=== PATIENT | male | born 1940 | race Caucasian/White ===

== ENCOUNTER → 2018-04-28 | Outpatient (CLI) | payer MEDICARE, MEDICAID ==
[~2018-04-28] MED LIST: ALBUTEROL2.5 MG/31 INH; ALPHAGAN P5 ML OPHTHALMIC; BREO ELLIPTA 11 EACH INH; DUREZOL5 ML OPHTHALMIC; FINASTERIDE5 MG PO; IPRATROPIU0.2 MG/1 M INH; LASIX 40 MG TAB40 M2 PO; LEXAPRO 10 MG T10 M2 PO; LUMIGAN2.5 M1 OPHTHALMIC; MIRALAX17 GM PO; NEURONTIN 300300 M1 PO; NORCO 5-325 TA1 EACH PO; OXYBUTYNIN 5 MG5 M2 PO; OXYCODONE HCL20 M1 PO; PROTONIX40 M1 PO; REFRESH CLASSI1 EACH OPHTHALMIC; REGLAN 5 MG TAB5 MG PO; ROBITUSSIN-COU237 ML PO; SENNA8.6 MG PO; TOPROL XL25 MG PO; TYLENOL325 MG PO; VENTOLIN HFA 1818 GM INH; VITAMIN D35000 UNI1 PO; XARELTO20 MG PO
== END ==
LOC: M.WC 10:00
DX: T81.31XA Disruption of external operation (surgical) wound, not elsewhere classified, initial encounter (principal); J44.9 Chronic obstructive pulmonary disease, unspecified; Z87.891 Personal history of nicotine dependence; Z93.2 Ileostomy status; Y92.89 Other specified places as the place of occurrence of the external cause; Y83.8 Other surgical procedures as the cause of abnormal reaction of the patient, or of later complication, without mention of misadventure at the time of the procedure

== ENCOUNTER → 2018-05-12 | Outpatient (CLI) | payer MEDICARE, MEDICAID | LOC: M.WC 01:24 | DX: T81.31XD Disruption of external operation (surgical) wound, not elsewhere classified, subsequent encounter (principal); J44.9 Chronic obstructive pulmonary disease, unspecified; Z87.891 Personal history of nicotine dependence; Y83.8 Other surgical procedures as the cause of abnormal reaction of the patient, or of later complication, without mention of misadventure at the time of the procedure ==

== ENCOUNTER → 2018-05-26 | Outpatient (CLI) | payer MEDICARE | LOC: M.WC 01:22 | DX: T81.31XD Disruption of external operation (surgical) wound, not elsewhere classified, subsequent encounter (principal); M86.8X8 Other osteomyelitis, other site; J44.9 Chronic obstructive pulmonary disease, unspecified; Z87.891 Personal history of nicotine dependence; Y83.8 Other surgical procedures as the cause of abnormal reaction of the patient, or of later complication, without mention of misadventure at the time of the procedure ==

== ENCOUNTER → 2018-05-30 | Outpatient (CLI) | payer MEDICARE | LOC: M.MRI 13:07 | DX: M86.9 Osteomyelitis, unspecified (principal); M47.899 Other spondylosis, site unspecified ==

== ENCOUNTER → 2018-06-09 | Outpatient (CLI) | payer MEDICARE | LOC: M.WC 01:48 | DX: T81.31XD Disruption of external operation (surgical) wound, not elsewhere classified, subsequent encounter (principal); J44.9 Chronic obstructive pulmonary disease, unspecified; Z87.891 Personal history of nicotine dependence; Y83.8 Other surgical procedures as the cause of abnormal reaction of the patient, or of later complication, without mention of misadventure at the time of the procedure ==

== ENCOUNTER → 2018-06-23 | Day surgery (SDC) | payer MEDICARE, MEDICAID ==
[2018-06-23 10:22] LABS: HEMATOCRIT 31.4 % (42.0-52.0); HEMOGLOBIN 10.1 gm/dL (14.0-18.0); MCH 26.1 pg (26.0-34.0); MCHC 32.1 g/dL (28.0-37.0); MCV 81.1 fL (80.0-100.0); RBC 3.87 mil/uL (4.50-6.00); RDW-CV 17.5 % (10.5-14.5); WBC 10.4 thou/uL (4.0-11.0)
[2018-06-23 10:44] LABS: CALCIUM 9.2 mg/dL (8.5-10.1); CREATININE 0.9 mg/dL (0.6-1.3)
--- NOTE | 2018-06-23 11:49 | EKG ---
[place] [address] ELECTROCARDIOGRAM REPORT Name: SANDOR MANSFIELD Room: [facility]#: [id number] Admission: 06/23/18 Attend Phys: Vianey Brantley MD Discharge: Date of : 36 Report #: [id number] THIS REPORT FOR: //name// [facility] Test Date: 2018-06-23 Test Time: 10:21:37 Pat Name: SANDOR MANSFIELD Department: Room: Gender: M Wire Web Worker: : 1940 Requested By: Vianey Brantley Order Number: [id number] Reading MD: Imtiaz Barrett Measurements Intervals [place] Rate: 60 P: IN: QRS: 40 QRSD: 85 T: 53 QT: 437 QTc: 437 Interpretive Statements Junctional rhythm No previous ECG available for comparison Electronically Signed On 06-23-2018 11:49:13 GENERAL WAREHOUSE WORKER by Imtiaz Barrett [email or web address] <ELECTRONICALLY SIGNED> By: Imtiaz Barrett MD, [facility] 06/23/18 1149 1021 1021 Imtiaz Barrett MD, FACC /EPI
--- NOTE | 2018-06-30 09:56 | H ---
[place] [address] HISTORY AND PHYSICAL Name: SHYLASANDOR Renard Room: [facility]#: [id number] Admission: 06/23/18 Attend Phys: Vianey Brantley MD Discharge: Date of : 38 Report #: [id number] THIS REPORT FOR: //name// CC: Vianey Quiñones ADMITTING DIAGNOSIS: Chronic nonhealing perineal surgical wound. HISTORY OF PRESENT ILLNESS: The patient is a 76-year-old male with a history of COPD, kidney stones, who underwent a recent abdominoperineal resection and his wound dehisced at his perineal site. He was sent to wound care back in early April for evaluation and treatment and then underwent a series of wound dressing changes and it became apparent that he needed more extensive debridement of his perineal wound and is being set up for surgery. His other surgical and medical history includes a suprapubic catheter surgery as well. He also has a permanent colostomy. HOME MEDICATIONS: Oxycodone, Tylenol, Proventil, albuterol, metoprolol, Xarelto, MiraLax, Lasix, Alphagan and Lumigan eyedrops, oxybutynin, vitamin D. ALLERGIES: He reports no known medication allergies, but has ENVIRONMENTAL ALLERGIES TO ADHESIVE TAPES, BAND-AIDS and LATEX. He also has ASPIRIN, CODEINE and PENICILLIN allergies. PHYSICAL EXAMINATION: GENERAL: He is a modestly obese elderly gentleman lying in bed, in no acute distress. HEAD, EYES, EARS, NOSE AND THROAT: Unremarkable. NECK: Supple, with no adenopathy or jugular venous distention. LUNGS: Distant but clear. CARDIAC: Irregularly irregular rhythm. ABDOMEN: Healed midline scar with an ileostomy stoma and suprapubic catheter in place and well healed and draining without incident. WOUND: In his coccyx area, he has a wound that is opened at 3 locations, but the length of the wounds are as follows, 4 cm in length, 5 cm in width and then 8 cm in depth. IMPRESSION: Nonhealing perineal surgical wound. PLAN: For wide local opening of the deep wound and creating a space for debridement and for placement of a wound VAC to help control and close the wound from the deeper aspects to the superficial aspects. The risks and benefits of the operation were outlined to the patient. His questions [place] [address] HISTORY AND PHYSICAL Name: SANDOR MANSFIELD Renard Room: [facility]#: [id number] Admission: 06/23/18 Attend Phys: Vianey Brantley MD Discharge: Date of : 38 Report #: [id number] understands and wishes to proceed. He is to be stopping his Xarelto 2 days prior to surgery. <ELECTRONICALLY SIGNED> By: Vianey Brantley MD 06/30/18 0956 1153 1218Vianey Brantley MD /edouard
--- NOTE | 2018-06-30 09:57 | OP ---
[address] [address] OPERATIVE REPORT Name: SANDOR MANSFIELD Room: [facility]#: [id number] Admission: 06/23/18 Attend Phys: Vianey Brantley MD Discharge: Date of : 38 Report #: [id number] THIS REPORT FOR: //name// CC: Vianey Quiñones DATE OF SERVICE: 06/23/2018 PREOPERATIVE DIAGNOSIS: Chronic nonhealing perineal wound. POSTOPERATIVE DIAGNOSIS: Toxic osteomyelitis. OPERATIVE PROCEDURE: Exploration and debridement of perineal wound, dimension is 5 cm in length, 2 cm in width and 7 cm in depth. ANESTHESIA: General endotracheal with 0.5% Marcaine and 1% lidocaine with epinephrine infiltrated into the wound site. OPERATIVE PROCEDURE: The patient was intubated and placed in a prone position with gluteal folds taped apart and the perianal skin and perineum was prepped and draped in a sterile fashion. Timeout taken. Antibiotics administered. I began by infiltrating around the three opening perineal wound and pulled out its gauze and then with a #10 scalpel blade connected the three openings creating a wound that was approximately 5 cm in length. It had some purulence that dissected all the way down into the deep perineal spaces and I could feel the coccyx bone, so I was the assumption that there was a deep seated infection involving the bone. There was no erosion of the bone that I could appreciate. The wound was debrided out sharply with the scalpel blade. No bone was taken for culture. The area was irrigated copiously with saline and then a small GranuFoam black was placed into the wound space and secured with the appropriate dressings and placed under 125 mmHg pressure sealing the wound ending the operative procedure. Estimated blood loss 10 mL. Sponge and instrument counts correct. Cultures were sent. The patient was returned to recovery in satisfactory condition. <ELECTRONICALLY SIGNED> By: Vianey Brantley MD 06/30/18 0957 1326 1340Vianey Brantley MD /nt
== END | disposition home or self-care (01) ==
LOC: M.SUR 06:57
PROVIDERS: Surgery
DX: T81.89XA Other complications of procedures, not elsewhere classified, initial encounter (principal); M86.8X8 Other osteomyelitis, other site; I10 Essential (primary) hypertension; I48.91 Unspecified atrial fibrillation; J44.9 Chronic obstructive pulmonary disease, unspecified; D64.9 Anemia, unspecified; M10.9 Gout, unspecified; G62.9 Polyneuropathy, unspecified; F32.9 Major depressive disorder, single episode, unspecified; K21.9 Gastro-esophageal reflux disease without esophagitis; Z87.442 Personal history of urinary calculi; Z79.891 Long term (current) use of opiate analgesic; Z79.899 Other long term (current) drug therapy; Z98.0 Intestinal bypass and anastomosis status; Z98.890 Other specified postprocedural states; Z79.01 Long term (current) use of anticoagulants; Z88.0 Allergy status to penicillin; Z91.040 Latex allergy status; Z88.6 Allergy status to analgesic agent; Y83.8 Other surgical procedures as the cause of abnormal reaction of the patient, or of later complication, without mention of misadventure at the time of the procedure

== ENCOUNTER → 2018-06-30 | Outpatient (CLI) | payer MEDICARE, MEDICAID | LOC: M.WC 01:22 | DX: T81.31XD Disruption of external operation (surgical) wound, not elsewhere classified, subsequent encounter (principal); J44.9 Chronic obstructive pulmonary disease, unspecified; Z87.891 Personal history of nicotine dependence; Y83.8 Other surgical procedures as the cause of abnormal reaction of the patient, or of later complication, without mention of misadventure at the time of the procedure ==

== ENCOUNTER → 2018-07-07 | Outpatient (CLI) | payer MEDICARE, MEDICAID | LOC: M.WC 09:30 | DX: T81.31XD Disruption of external operation (surgical) wound, not elsewhere classified, subsequent encounter (principal); J44.9 Chronic obstructive pulmonary disease, unspecified; Z87.891 Personal history of nicotine dependence; Y83.8 Other surgical procedures as the cause of abnormal reaction of the patient, or of later complication, without mention of misadventure at the time of the procedure ==

== ENCOUNTER → 2018-07-14 | Outpatient (CLI) | payer MEDICARE, MEDICAID | LOC: M.WC 10:00 | DX: T81.31XD Disruption of external operation (surgical) wound, not elsewhere classified, subsequent encounter (principal); J44.9 Chronic obstructive pulmonary disease, unspecified; Z87.891 Personal history of nicotine dependence; Y83.8 Other surgical procedures as the cause of abnormal reaction of the patient, or of later complication, without mention of misadventure at the time of the procedure ==

== ENCOUNTER 2018-07-20 22:28 | Inpatient (IN) | payer MEDICARE, MEDICAID ==
[~2018-07-20] VITALS: Ht 185.4 cm; Wt 109.8 kg
--- NOTE | ~2018-07-20 | CON ---
[address] [address] CONSULTATION Name: SANDOR MANSFIELD Room: [address] IN M.R.#: [id number] Admission: 07/21/18 Attend Phys: Jovan Mazariegos MD Discharge: 07/25/18 Date of : 38 Report #: [id number] THIS REPORT FOR: //name// CC: Jovan Mazariegos [facility] DATE OF SERVICE: 07/21/2018 REFERRING PHYSICIAN: Jovan Mazariegos MD REASON FOR CONSULTATION: Abdominal pain. IMPRESSION: 1. Generalized abdominal pain associated with nausea and vomiting -- evaluate for peptic ulcer disease versus gallbladder disease versus other cause. 2. Dilated loops of small bowel on CT scan -- evaluate for partial small-bowel obstruction. 3. Status post subtotal colectomy with permanent ileostomy in 03/2018 at [facility] by Dr. Miah Sotomayor for colonic inertia. 4. Nonhealing perineal wound. Wound under the care of Dr. Vianey Brantley. 5. Morbid obesity. RECOMMENDATIONS: 1. We will proceed with an abdominal ultrasound and abdominal films tomorrow morning. 2. We will proceed with upper endoscopy, but possibly will be placed on an NG tube if there is evidence to suggest bowel obstruction. 3. Depending on tomorrow tests and his ability, he may need to have a PICC line placed for TPN. I discussed the plan with the patient as well and he is agreeable to the same. HISTORY OF PRESENT ILLNESS: The patient is an unfortunate 77-year-old white male with a history of colonic inertia who underwent surgical intervention for the same back in March of this year at [facility] and has a permanent ileostomy. He was admitted to the hospital with complaints of abdominal pain, nausea and vomiting. He has not been able to state if he has problem with his ulcer. He has had some ostomy output indicating that he does not have a full blown obstruction. He underwent laboratory testing and CT scans, which revealed some dilated loops of small bowel. He is admitted to the hospital for further evaluation and treatment. ALLERGIES: MULTIPLE INCLUDES ADHESIVE TAPE, ASPIRIN, BAND-AIDS, CODEINE, LATEX, [place] [address] CONSULTATION Name: SHYLASANDOR Renard Room: [address]#: [id number] Admission: 07/21/18 Attend Phys: Jovan Mazariegos MD Discharge: 07/25/18 Date of : 38 Report #: [id number] MEDICATIONS: Include Tylenol, gabapentin, some eyedrops, albuterol, Atrovent, Breo-Ellipta, metoprolol, Xarelto, MiraLax, senna, pantoprazole, Lexapro, oxybutynin, vitamin D3, finasteride and Reglan. PAST MEDICAL AND SURGICAL HISTORY: Remarkable for COPD, chronic atrial fibrillation and history of kidney cancer. He has a problem with urinary retention and had suprapubic catheter in place. He has had previous subtotal colectomy with a permanent ileostomy. He has chronic pain syndrome as well. SOCIAL HISTORY: He does not smoke and he does not drink alcohol. FAMILY HISTORY: Negative PHYSICAL EXAMINATION: GENERAL: Revealed an [id number] 77-year-old white male who is awake and alert. CARDIOPULMONARY: Revealed an irregular rate and rhythm. LUNGS: Clear. ABDOMEN: Soft. It was mildly distended and tender diffusely. No rebound or guarding noted. LABORATORY TESTS: Revealed a white count of 15.7, hemoglobin 11.5, platelet count 314,000, MCV 81.6 and RDW is 18.3. Sodium 139, potassium 4.0, chloride 101, bicarbonate is 30, BUN 13, creatinine 0.8, total bilirubin 0.8, alkaline phosphatase 58, AST is 13 and ALT 20. His albumin is 3.0. DISCUSSION: At the present time, it is unclear what is going on with the patient. He will receive an abdominal series and ultrasound tomorrow and upper endoscopy and make further recommendations thereafter. By: [id number] Manuel Collazo DO /nt
--- NOTE | ~2018-07-20 | PROC ---
[address] [address] PROCEDURE REPORT Name: SANDOR MANSFIELD Room: [address] IN .R.#: [id number] Admission: 07/21/18 Attend Phys: Jovan Mazariegos MD Discharge: Date of : 38 Report #: [id number] THIS REPORT FOR: //name// For GI report, please see the Provation report in Perceptive 7. By: [id number] Records Staff THERESE /JORDI
[2018-07-20 22:29] VITALS: BP 130/92
[2018-07-20] MEDS ORDERED: NORCO 7.5-3251 EACH ×2 (22:46)
[2018-07-20 22:56] LABS: ABSOLUTE BASOPHILS 0.1 thou/uL (0.0-0.2); ABSOLUTE EOSINOPHILS 0.1 thou/uL (0.0-0.7); ABSOLUTE LYMPHOCYTES 1.6 thou/uL (0.8-5.3); ABSOLUTE MONOCYTES 0.8 thou/uL (0.0-1.2); ABSOLUTE NEUTROPHILS 13.1 thou/uL (1.6-8.1); BASOPHILS 0.7 %; EOSINOPHILS 0.7 %; HEMATOCRIT 36.2 % (42.0-52.0); HEMOGLOBIN 11.5 gm/dL (14.0-18.0); LYMPHOCYTES 10.4 %; MCH 25.9 pg (26.0-34.0); MCHC 31.8 g/dL (28.0-37.0); MCV 81.6 fL (80.0-100.0); MONOCYTES 5.1 %; MPV 7.8 fl. (7.2-11.1); NUCLEATED RBCS 0 /100WBC; PLATELET COUNT* 314 thou/uL (150-400); POLYS 83.1 %; RBC 4.44 mil/uL (4.50-6.00); RDW-CV 18.3 % (10.5-14.5); WBC 15.7 thou/uL (4.0-11.0)
[2018-07-20 23:02] LABS: ANION GAP 8 mmol/L (7-16); BUN 13 mg/dL (7-18); CALCIUM 9.4 mg/dL (8.5-10.1); CHLORIDE 101 mmol/L (98-107); CO2 30 mmol/L (21-32); CREATININE 0.8 mg/dL (0.6-1.3); GLUCOSE 131 mg/dL (70-99); SODIUM 139 mmol/L (136-145)
[2018-07-20 23:09] LABS: ALKALINE PHOSPHATASE 58 U/L (46-116); LIPASE 80 U/L (73-393); SGOT 13 U/L (15-37); SGPT 20 U/L (30-65); TOTAL BILIRUBIN 0.8 mg/dL (<0.1-1.0); TOTAL PROTEIN 7.7 g/dL (6.4-8.2); TROPONIN-I LEVEL <0.06 ng/mL (<0.06)
[2018-07-21 00:31] LABS: URINE BILIRUBIN NEGATIVE (Negative); URINE BLOOD 2+ (Negative); URINE CLARITY CLEAR; URINE COLOR YELLOW; URINE GLUCOSE-RANDOM NEGATIVE (Negative); URINE KETONES NEGATIVE (Negative); URINE LEUKOCYTES-REFLEX 1+ (Negative); URINE NITRITE-REFLEX POSITIVE (Negative); URINE PROTEIN TRACE (Negative); URINE UROBILINOGEN 0.2 E.U./dl (0.2-1.0)
[2018-07-21 00:32] LABS: BACTERIA-REFLEX >30 Many /HPF (None Seen); CASTS None Seen /LPF (None Seen); MUCUS 4-6 Moderate strn/LPF (None Seen); SQUAMOUS 0-3 Few /LPF (0-3); URIC ACID CRYSTALS >10 Many /LPF (None Seen); URINE RBC >20 Many /HPF (0-2); URINE WBC-REFLEX >25 Many /HPF (0-5); WBC CLUMPS Moderate (None Seen)
[2018-07-21 02:25] VITALS: BP 110/66
[2018-07-21 03:00] VITALS: BP 110/66
[2018-07-21 07:50] VITALS: BP 138/77
--- NOTE | 2018-07-21 10:29 | EKG ---
[place] [address] ELECTROCARDIOGRAM REPORT Name: SANDOR MANSFIELD Room: [address] ADM IN [facility].#: [id number] Admission: 07/21/18 Attend Phys: Jovan Mazariegos MD Discharge: Date of : 38 Report #: [id number] THIS REPORT FOR: //name// [facility] ED Test Date: 2018-07-20 Test Time: 22:51:39 Pat Name: SANDOR MANSFIELD Department: Room: [facility] Gender: Software Manager: MACIE : 1940 Requested By: Eduardo Peraza Order Number: [id number] MD: Imtiaz Barrett Measurements Intervals [place] Rate: 93 P: 0 DE: 147 QRS: 41 QRSD: 83 T: 46 QT: 368 QTc: 458 Interpretive Statements atrial fibrillation Compared to ECG 06/23/2018 10:21:37 Junctional rhythm no longer present Electronically Signed On 07-21-2018 10:29:36 WOODENWARE ASSEMBLER by Imtiaz Barrett [email or web address] <ELECTRONICALLY SIGNED> By: Imtiaz Barrett MD, [facility] 07/21/18 1029 50 50 Imtiaz Barrett MD, [facility] /EPI
[2018-07-21 12:00] VITALS: BP 123/75
[2018-07-21 16:00] VITALS: BP 119/63
[2018-07-21 21:45] VITALS: BP 120/60
[2018-07-22] VITALS (7 sets, daily range): BP systolic 98–130; BP diastolic 54–71
[2018-07-22 04:50] LABS: HEMATOCRIT 30.6 % (42.0-52.0); HEMOGLOBIN 9.9 gm/dL (14.0-18.0); MCH 26.7 pg (26.0-34.0); MCHC 32.4 g/dL (28.0-37.0); MCV 82.3 fL (80.0-100.0); MPV 8.2 fl. (7.2-11.1); RBC 3.72 mil/uL (4.50-6.00); RDW-CV 17.8 % (10.5-14.5)
[2018-07-22 05:16] LABS: ALBUMIN 2.6 g/dL (3.4-5.0); CALCIUM 8.6 mg/dL (8.5-10.1); CREATININE 0.8 mg/dL (0.6-1.3); POTASSIUM 3.5 mmol/L (3.5-5.1); TOTAL BILIRUBIN 0.2 mg/dL (<0.1-1.0); TOTAL PROTEIN 6.7 g/dL (6.4-8.2)
[2018-07-22 08:12] LABS: INR 1.2; PROTIME 12.3 Seconds (9.20-11.50)
[2018-07-23 04:44] LABS: ABSOLUTE BASOPHILS 0.1 thou/uL (0.0-0.2); ABSOLUTE EOSINOPHILS 0.3 thou/uL (0.0-0.7); ABSOLUTE LYMPHOCYTES 2.8 thou/uL (0.8-5.3); ABSOLUTE MONOCYTES 0.5 thou/uL (0.0-1.2); ABSOLUTE NEUTROPHILS 5.5 thou/uL (1.6-8.1); BASOPHILS 0.9 %; HEMATOCRIT 30.5 % (42.0-52.0); LYMPHOCYTES 30.1 %; MCH 27.2 pg (26.0-34.0); MCHC 32.8 g/dL (28.0-37.0); MCV 82.9 fL (80.0-100.0); MONOCYTES 5.8 %; MPV 8.1 fl. (7.2-11.1); NUCLEATED RBCS 0 /100WBC; PLATELET COUNT* 247 thou/uL (150-400); POLYS 60.2 %; RBC 3.68 mil/uL (4.50-6.00); RDW-CV 17.5 % (10.5-14.5); WBC 9.2 thou/uL (4.0-11.0)
[2018-07-23 05:12] LABS: ALBUMIN 2.6 g/dL (3.4-5.0); CALCIUM 8.9 mg/dL (8.5-10.1); CREATININE 0.8 mg/dL (0.6-1.3); POTASSIUM 3.5 mmol/L (3.5-5.1); TOTAL BILIRUBIN 0.3 mg/dL (<0.1-1.0); TOTAL PROTEIN 6.6 g/dL (6.4-8.2)
[2018-07-23 05:13] LABS: PREALBUMIN 20.4 mg/dL (18.0-35.7)
[2018-07-23 06:33] LABS: ESR (SEDRATE) 60 mm/hr (0-20)
[2018-07-23 08:05] VITALS: BP 130/66
[2018-07-23 16:58] VITALS: BP 107/67
[2018-07-24 00:36] VITALS: BP 121/93
[2018-07-24 03:57] VITALS: BP 123/60
[2018-07-24 07:40] VITALS: BP 133/71
[2018-07-24 15:45] VITALS: BP 109/54
[2018-07-24 20:00] VITALS: BP 127/70
[2018-07-25 08:00] VITALS: BP 127/66
[2018-07-25] MEDS ORDERED: NORCO 7.5-3251 EACH PO ×2 (10:48)
[2018-07-25] MEDS ORDERED: FOLIC ACID1 MG PO ×2 (10:48)
[2018-07-25] MEDS ORDERED: OXYCODONE HCL20 M1 PO ×2 (10:48)
[2018-07-25] MEDS ORDERED: IPRATROPIU0.2 MG/1 M INH ×2 (10:48)
[2018-07-25] MEDS ORDERED: DOXYCYCLINE 10100 MG PO ×2 (10:48)
[2018-07-25 12:47] VITALS: BP 127/66
[2018-07-25] MEDS ORDERED: CIPROFLOXA IVPB (12:58)
== END 2018-07-25 15:00 | DRG 871 ==
LOC: M.ERS 22:28 → M.3W 07-21 02:10 → M.2W 07-21 02:10 → M.TBA-ER 07-21 02:10 → M.2W 07-21 02:45 → M.3W 07-22 15:26
PROVIDERS: Internal Medicine; Internal Medicine Gastroenterology; Nurse Practitioner Family; ADMIT Internal Medicine
PROC: 0DJ08ZZ Inspection of Upper Intestinal Tract, Via Natural or Artificial Opening Endoscopic (ICD-10-PCS; principal; 2018-07-22)
PROC: 02HV33Z Insertion of Infusion Device into Superior Vena Cava, Percutaneous Approach (ICD-10-PCS; 2018-07-24)
DX: A41.9 Sepsis, unspecified organism (principal); J15.6 Pneumonia due to other Gram-negative bacteria; N39.0 Urinary tract infection, site not specified; K56.609 Unspecified intestinal obstruction, unspecified as to partial versus complete obstruction; J44.9 Chronic obstructive pulmonary disease, unspecified; K52.9 Noninfective gastroenteritis and colitis, unspecified; F32.9 Major depressive disorder, single episode, unspecified; R33.9 Retention of urine, unspecified; K44.9 Diaphragmatic hernia without obstruction or gangrene; K80.80 Other cholelithiasis without obstruction; B96.1 Klebsiella pneumoniae [K. pneumoniae] as the cause of diseases classified elsewhere; I48.91 Unspecified atrial fibrillation; Z85.528 Personal history of other malignant neoplasm of kidney; Z93.3 Colostomy status; Z88.0 Allergy status to penicillin; Z88.8 Allergy status to other drugs, medicaments and biological substances; Z88.6 Allergy status to analgesic agent; Z91.040 Latex allergy status; Z86.14 Personal history of Methicillin resistant Staphylococcus aureus infection

== ENCOUNTER → 2018-07-28 | Outpatient (CLI) | payer MEDICARE, MEDICAID ==
[~2018-07-28] MED LIST changes: +CIPROFLOXA IVPB; +DOXYCYCLINE 10100 MG PO; +FOLIC ACID1 MG PO; +NORCO 7.5-3251 EACH; +NORCO 7.5-3251 EACH PO
== END ==
LOC: M.WC 02:33
DX: T81.31XD Disruption of external operation (surgical) wound, not elsewhere classified, subsequent encounter (principal); B37.49 Other urogenital candidiasis; J44.9 Chronic obstructive pulmonary disease, unspecified; Z87.891 Personal history of nicotine dependence; Y83.8 Other surgical procedures as the cause of abnormal reaction of the patient, or of later complication, without mention of misadventure at the time of the procedure

== ENCOUNTER → 2018-08-04 | Outpatient (CLI) | payer MEDICARE, MEDICAID | LOC: M.WC 00:55 | DX: T81.31XD Disruption of external operation (surgical) wound, not elsewhere classified, subsequent encounter (principal); B37.49 Other urogenital candidiasis; J44.9 Chronic obstructive pulmonary disease, unspecified; Z87.891 Personal history of nicotine dependence; Y83.8 Other surgical procedures as the cause of abnormal reaction of the patient, or of later complication, without mention of misadventure at the time of the procedure ==

== ENCOUNTER → 2018-08-18 | Outpatient (CLI) | payer MEDICARE, MEDICAID | LOC: M.WC 02:08 | DX: T81.31XD Disruption of external operation (surgical) wound, not elsewhere classified, subsequent encounter (principal); B37.49 Other urogenital candidiasis; J44.9 Chronic obstructive pulmonary disease, unspecified; Z87.891 Personal history of nicotine dependence; Y83.8 Other surgical procedures as the cause of abnormal reaction of the patient, or of later complication, without mention of misadventure at the time of the procedure ==

== ENCOUNTER → 2018-09-01 | Outpatient (CLI) | payer MEDICARE, MEDICAID ==
[~2018-09-01] MED LIST changes: +EUCERIN CREME57 GM TOP; +NYAMYC15 GM TOP; +OXYGEN NASAL; +SKIN PROTECTAN113 GM TOP; +ZOFRAN ODT4 MG DISSOLVE
== END ==
LOC: M.WC 09:32
DX: T81.31XD Disruption of external operation (surgical) wound, not elsewhere classified, subsequent encounter (principal); B37.49 Other urogenital candidiasis; J44.9 Chronic obstructive pulmonary disease, unspecified; Z87.891 Personal history of nicotine dependence; Y83.8 Other surgical procedures as the cause of abnormal reaction of the patient, or of later complication, without mention of misadventure at the time of the procedure

== ENCOUNTER 2018-09-03 08:39 | Inpatient (IN) | payer MEDICARE, MEDICAID ==
[~2018-09-03] VITALS: Ht 185.4 cm; Wt 212.8 kg
[~2018-09-03 08:39] MED LIST changes: -EUCERIN CREME57 GM TOP; -NYAMYC15 GM TOP; -OXYGEN NASAL; -SKIN PROTECTAN113 GM TOP; -ZOFRAN ODT4 MG DISSOLVE
[2018-09-03 08:41] VITALS: BP 145/76
[2018-09-03 09:11] LABS: HEMOGLOBIN 11.7 gm/dL (14.0-18.0); MCH 26.9 pg (26.0-34.0); MCHC 32.4 g/dL (28.0-37.0); MCV 83.1 fL (80.0-100.0); MPV 7.6 fl. (7.2-11.1); NUCLEATED RBCS 0 /100WBC; PLATELET COUNT* 318 thou/uL (150-400); RBC 4.34 mil/uL (4.50-6.00); RDW-CV 15.8 % (10.5-14.5); WBC 17.6 thou/uL (4.0-11.0)
[2018-09-03] MEDS ORDERED: VENTOLIN HFA 1818 GM INH (09:12)
[2018-09-03] MEDS ORDERED: NYAMYC15 GM TOP (09:12)
[2018-09-03] MEDS ORDERED: SKIN PROTECTAN113 GM TOP (09:14)
[2018-09-03] MEDS ORDERED: EUCERIN CREME57 GM TOP (09:15)
[2018-09-03] MEDS ORDERED: NORCO 7.5-3251 EACH PO (09:15)
[2018-09-03] MEDS ORDERED: OXYGEN NASAL (09:15)
[2018-09-03] MEDS ORDERED: ZOFRAN ODT4 MG DISSOLVE (09:16)
[2018-09-03 09:20] LABS: APTT 29.5 Seconds (25.0-31.3); INR 1.1; PROTIME 10.8 Seconds (9.20-11.50)
[2018-09-03 09:23] LABS: ANION GAP 6 mmol/L (7-16); BUN 13 mg/dL (7-18); CALCIUM 9.1 mg/dL (8.5-10.1); CHLORIDE 101 mmol/L (98-107); CO2 31 mmol/L (21-32); CREATININE 0.9 mg/dL (0.6-1.3); GLUCOSE 137 mg/dL (70-99); POTASSIUM 4.3 mmol/L (3.5-5.1); SODIUM 138 mmol/L (136-145)
[2018-09-03 09:31] LABS: ALBUMIN 3.2 g/dL (3.4-5.0); ALKALINE PHOSPHATASE 84 U/L (46-116); LIPASE 85 U/L (73-393); MAGNESIUM 1.8 mg/dL (1.8-2.4); NT-PRO BRAIN NAT PEPTIDE 1295 pg/mL (<300); SGOT 10 U/L (15-37); SGPT 15 U/L (30-65); TOTAL BILIRUBIN 0.7 mg/dL (<0.1-1.0); TOTAL PROTEIN 8.1 g/dL (6.4-8.2); TROPONIN-I LEVEL <0.06 ng/mL (<0.06)
[2018-09-03 09:42] LABS: ABSOLUTE EOSINOPHILS 0.2 thou/uL (0.0-0.7); ABSOLUTE LYMPHOCYTES 1.9 thou/uL (0.8-5.3); ABSOLUTE MONOCYTES 0.2 thou/uL (0.0-1.2); ABSOLUTE NEUTROPHILS 15.3 thou/uL (1.6-8.1); ATYPICAL LYMPHS 2 %; PLATELET ESTIMATE ADEQUATE
[2018-09-03 10:18] LABS: BE -0.7 mmol/L (-2 to +3); HCO3 23.9 mmol/L (22.0-26.0); PCO2 39.6 mmHg (35.0-45.0); PO2 70.9 mmHg (75.0-100.0); pH 7.399 (7.340-7.450)
[2018-09-03 12:49] LABS: URINE BILIRUBIN NEGATIVE (Negative); URINE BLOOD 3+ (Negative); URINE CLARITY CLEAR; URINE COLOR YELLOW; URINE GLUCOSE-RANDOM NEGATIVE (Negative); URINE KETONES NEGATIVE (Negative); URINE LEUKOCYTES-REFLEX 2+ (Negative); URINE NITRITE-REFLEX POSITIVE (Negative); URINE PROTEIN TRACE (Negative); URINE SPECIFIC GRAVITY >= 1.030 (1.005-1.030); URINE UROBILINOGEN 0.2 E.U./dl (0.2-1.0)
[2018-09-03 12:57] LABS: BACTERIA-REFLEX >30 Many /HPF (None Seen); COARSE GRANULAR CASTS >10 Many /LPF (None Seen); MUCUS 0-3 Light strn/LPF (None Seen); SQUAMOUS 0-3 Few /LPF (0-3); TRIPLE PHOSPHATE CRYSTALS 0-3 Few /LPF (None Seen); YEAST-REFLEX Present (None Seen)
[2018-09-03 13:52] VITALS: BP 133/66
[2018-09-03 14:44] VITALS: BP 133/66
--- NOTE | 2018-09-03 15:00 | NUR ---
PT ARRIVED TO ROOM 200 VIA CART. PT PLACED ON MONITOR. REFUSES TO CHANGE INTO GOWN. PT REFUSES TO TURN TO ALLOW SKIN ASSESSMENT. PT HAS SUPRAPUBIC CATH DRAINING CLOUDY URINE. PRAFO BOOTS ON
[2018-09-03 16:09] VITALS: BP 128/67
--- NOTE | 2018-09-03 16:29 | NUR ---
SPOKE WITH HAND TUBE BENDER AT [facility] TO UPDATE HER ON PT'S CONDITION. PT IS IN A RESIDENTIAL CARE BED AND THEY PLAN ON PT RETURNING.
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
--- NOTE | 2018-09-03 18:08 | EKG ---
[place] [address] ELECTROCARDIOGRAM REPORT Name: SANDOR MANSFIELD Room: [address] ADM IN [facility].#: [id number] Admission: 09/03/18 Attend Phys: Ricardo Reddy MD Discharge: Date of : 38 Report #: [id number] THIS REPORT FOR: //name// [facility] ED Test Date: 2018-09-03 Test Time: 08:51:31 Pat Name: SANDOR MANSFIELD Department: Room: [facility] Gender: M Can Conveyor Feeder: BRIAN : 1940 Requested By: David Lucio Order Number: [id number] MD: Son Alejandre Measurements Intervals [place] Rate: 103 P: 209 MI: 138 QRS: 37 QRSD: 86 T: 72 QT: 307 QTc: 402 Interpretive Statements Sinus or ectopic atrial tachycardia Borderline low voltage, extremity leads Compared to ECG 07/20/2018 22:51:39 Atrial fibrillation no longer present Electronically Signed On 09-03-2018 18:08:04 HUMAN CAPITAL CONSULTANT by Son Alejandre [email or web address] <ELECTRONICALLY SIGNED> By: Son Alejandre MD, [facility] 09/03/18 1808 0851 0851 Son Alejandre MD, [facility] /EPI
--- NOTE | 2018-09-03 18:36 | NUR ---
PT RESTING IN BED. REPOSITIONED WITH MUCH ENCOURAGEMENT. SUPRAPUBIC CATH DRAINING CLOUDY YELLOW URINE. COLOSTOMY DRAINING SOFT STOOL.PT COMBATIVE AT TIMES BUT REDIRECTABLE. IVF INFUSING. PT TOLERATING PO WELL. ANIMAL GENETICIST COUGH
[2018-09-03 19:45] VITALS: BP 135/73
[2018-09-04 00:37] VITALS: BP 136/73
[2018-09-04 04:00] VITALS: BP 121/67
[2018-09-04 05:25] LABS: ABSOLUTE LYMPHOCYTES 1.1 thou/uL (0.8-5.3); ABSOLUTE MONOCYTES 0.2 thou/uL (0.0-1.2); ABSOLUTE NEUTROPHILS 15.3 thou/uL (1.6-8.1); BASOPHILS 0.2 %; HEMATOCRIT 32.7 % (42.0-52.0); HEMOGLOBIN 10.6 gm/dL (14.0-18.0); LYMPHOCYTES 6.4 %; MCH 26.7 pg (26.0-34.0); MCHC 32.3 g/dL (28.0-37.0); MCV 82.7 fL (80.0-100.0); MONOCYTES 1.5 %; MPV 8.2 fl. (7.2-11.1); NUCLEATED RBCS 0 /100WBC; PLATELET COUNT* 278 thou/uL (150-400); POLYS 91.9 %; RBC 3.96 mil/uL (4.50-6.00); RDW-CV 15.8 % (10.5-14.5); WBC 16.6 thou/uL (4.0-11.0)
[2018-09-04 05:34] LABS: CALCIUM 9.5 mg/dL (8.5-10.1); CREATININE 0.9 mg/dL (0.6-1.3); POTASSIUM 4.1 mmol/L (3.5-5.1)
--- NOTE | 2018-09-04 06:51 | NUR ---
RECEIVED REPORT AND ASSUMED CARE AT 1900. VSS. CARDIAC MONITORING IN PLACE. PT DENIES PAIN. ASSESSMENT COMPLETED CHARTED. DISCUSSED PLAN OF CARE WITH PT, VERBALIZED UNDERSTANDING. PT BEDREST, ON 3L NC. BED LOCKED IN LOWEST POSITION, CALL LIGHT WITHIN REACH, BED ALARM ON. HEELS OFF LOADED WITH BOOTS, POSITION CHANGED EVERY TWO HOURS AND PRN. MEDICATION ADMIN PER EMAR. HOURLY ROUNDING COMPLETED AND ALL NEEDS MET. NURSING WILL CONTINUE TO MONITOR
[2018-09-04 08:00] VITALS: BP 138/90
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
[2018-09-04 11:51] VITALS: BP 133/57
--- NOTE | 2018-09-04 12:02 | NUR ---
SOC COMPUTER PLACED IN ROOM. DISCUSSED PSYCH CONSULT W PT. PT REFUSES TO SPEAK TO PSYCH. PT A&OX4. DENIES SI/HI. NO AGGRESSIVE BEHAVIORS SEEN TODAY
--- NOTE | 2018-09-04 13:23 | NUR ---
Pt is A&O. Resides at [facility], Pt has lived there since 01/2018. CM spoke with LUIS at [facility]. SW informed that last week, Pt made the statement that he was going to go get a gun and "blow his brains out." SW stated that they contacted psych, Pt was evaluated and no further intervention was noted, d/t Pt not having the means to complete the act. LUIS states that Pt has a hx of lying and being manipulative. Pt has a hx of LTC hoping, Pt has been to multiple LTC facilities. Pt does not have a support sx, per SW Pt has children, but none are involved in his life. LUIS notes that some days Pt is nice and enjoyable, but on other days, Pt can be hateful and mean, LUIS notes that staff are suspicious that Pt may have undiagnosed bipolar dx. LUIS notes that Pt has been increasingly agitated over the past few days. Pt is seen at [facility] wound center. Pt uses a motorized wc for mobility and requires a anthony lift for transfers. Tele psych eval ordered. [facility] is able to accept Pt back to LTC at ar. Following.
--- NOTE | 2018-09-04 14:09 | 2DMMODE ---
[place] [address] 2 D/M-MODE ECHOCARDIOGRAM Name: SANDOR MANSFIELD Room: [address] IN [facility]#: [id number] Admission: 09/03/18 Attend Phys: Ricardo Reddy MD Discharge: Date of : 38 Date of Service: 09/04/18 1408 Report #: [id number] THIS REPORT FOR: //name// APPROVED REPORT Study performed: 09/04/2018 10:41:01 EXAM: Comprehensive 2D, Doppler, and color-flow Echocardiogram Patient Location: In-Patient Room #: 200 Status: routine BSA: 2.28 HR: 76 bpm BP: 138/90 mmHg Rhythm: NSR Other Information Study Quality: Fair Technically limited study due to poor apical windows, patient could not tolerate probe pressure and could not lie on side. Indications Elevated bnp 2D Dimensions IVSd: 14.49 (7-11mm) LVOT Diam: 19.82 (18-24mm) LVDd: 48.68 mm PWd: 14.57 (7-11mm) LVDs: 28.14 (25-40mm) Aortic Root: 33.24 mm Aortic Valve LVOT Max P.48 mmHg LVOT Mean P.21 mmHg LVOT Max V: 0.79 m/s LVOT Mean V: 0.50 m/s LVOT V1 VTI: 14.79 cm Pulmonary Valve PV Peak Lan.: 0.89 m/s PV Peak Gr.: 3.18 mmHg Left Ventricle The left ventricle is normal size. There is normal LV segmental wall motion. Regional wall motion is not well [place] [address] 2 D/M-MODE ECHOCARDIOGRAM Name: SANDOR MANSFIELD Renard Room: [address] IN [facility]#: [id number] Admission: 09/03/18 Attend Phys: Ricardo Reddy MD Discharge: Date of : 36 Date of Service: 09/04/18 1408 Report #: [id number] normal. Mild concentric left ventricular hypertrophy. The left ventricular systolic function is normal. The left ventricular ejection fraction is within the normal range. LVEF is 55%. The left ventricular diastolic function is normal. Right Ventricle The right ventricle is normal size. The right ventricular systolic function is normal. Atria The left atrium size is normal. The right atrium size is normal. Aortic Valve Mild aortic valve sclerosis. No aortic regurgitation is present. There is no aortic valvular stenosis. Mitral Valve The mitral valve is normal in structure. There is no mitral valve regurgitation noted. No evidence of mitral valve stenosis. Tricuspid Valve Tricuspid valve is not well visualized. There is no tricuspid valve regurgitation noted. Pulmonic Valve Pulmonic valve is not well visualized. There is no pulmonic valvular regurgitation. Great Vessels The aortic root is normal in size. The aortic root is not well visualized but is probably normal size. There is aortic root dilation. IVC is normal in size and collapses >50% with inspiration. Pericardium There is no pericardial effusion. <Conclusion> The left ventricle is normal size. There is normal LV segmental wall motion. Regional wall motion is not well visualized but grossly normal. Mild concentric left ventricular hypertrophy. LVEF is 55%. Mild aortic valve sclerosis. There is no aortic [place] [address] 2 D/M-MODE ECHOCARDIOGRAM Name: SANDOR MANSFIELD Room: [address] IN [facility]#: [id number] Admission: 09/03/18 Attend Phys: Ricardo Reddy MD Discharge: Date of : 36 Date of Service: 09/04/18 1408 Report #: [id number] No aortic regurgitation is present. No evidence of mitral valve stenosis. There is no mitral valve regurgitation noted. <ELECTRONICALLY SIGNED> By: Valeriano Sanches MD, [facility] 09/04/18 1408 140 1408 Valeriano Sanches MD, FACC /INF
--- NOTE | 2018-09-04 14:59 | NUR ---
LEFT CEPHALIC VESSEL ACCESSED FOR #20 HE POWER GLIDE MIDLINE. LINE ADVANCE WITH AQCCELERATED SELDINGER TECHNIQUE WITH NO RESISTANCE MET. GOOD BRISK BLOOD RETURN, LINE FLUSES FREELY WITH NO EXTRAVASATION OBSERVED. INSERTINO SITE DRESSED, REPORT GIVEN TO NOEL HINES.
[2018-09-04 15:39] VITALS: BP 139/76
--- NOTE | 2018-09-04 16:24 | NUR ---
PT CALM AND COOPERATIVE W STAFF THIS SHIFT. PT REPOSITIONED FREQUENTLY. PAIN WELL CONTROLLED WITH PO MEDS. SUPRAPUBIC CATH DRAINING CLOUDY URINE. COLOSTOMY TO LLQ. PT TOLERATING PO WELL. IVF INFUSING.PT REFUSED PSYCH EVAL TODAY
[2018-09-04 19:08] LABS: GLYCOHEMOGLOBIN (HGB A1C) 5.6 % (4.8-5.6)
[2018-09-04 20:14] VITALS: BP 141/70
[2018-09-05] VITALS: BP 118/67
[2018-09-05 04:00] VITALS: BP 136/73
[2018-09-05 05:08] LABS: HEMATOCRIT 29.2 % (42.0-52.0); HEMOGLOBIN 9.7 gm/dL (14.0-18.0); MCHC 33.1 g/dL (28.0-37.0); MCV 81.6 fL (80.0-100.0); MPV 8.1 fl. (7.2-11.1); RBC 3.58 mil/uL (4.50-6.00); WBC 18.1 thou/uL (4.0-11.0)
--- NOTE | 2018-09-05 05:21 | NUR ---
RECEIVED REPORT AND ASSUMED CARE AT 1900. VSS. CARDIAC MONITORING IN PLACE. ASSESSMENT COMPLETED CHARTED. DISCSSED PLAN OF CARE WITH PT. VERBALIZED UNDERSTANDING. PT BEDREST WITH 3L NC. SUPRAPUBIC CATH CARE AND HILLARY CARE GIVEN. MEDICATION ADMIN PER EMAR. HOURLY ROUNDING COMPLETED AND ALL NEEDS MET. BED LOCKED IN LOWEST POSITION, CALL LIGHT WITHIN REACH, BED ALARM ON. POSITION CHANGED EVERY TWO HOURS AND PRN. HEELS OFFLOADED BILAT WITH BOOTS. NURSING WILL CONTINUE TO MONITOR
[2018-09-05 05:29] LABS: CALCIUM 9.4 mg/dL (8.5-10.1); CREATININE 0.8 mg/dL (0.6-1.3)
[2018-09-05 08:00] VITALS: BP 129/75
--- NOTE | 2018-09-05 08:08 | CON ---
[address] [address] CONSULTATION Name: SANDOR MANSFIELD Room: [address] IN ..#: [id number] Admission: 09/03/18 Attend Phys: Ricardo Reddy MD Discharge: Date of : 38 Report #: [id number] THIS REPORT FOR: //name// CC: Morro Reddy DATE OF SERVICE: 09/04/2018 INFECTIOUS DISEASE CONSULTATION ATTENDING PHYSICIAN: Dr. Reddy. REASON FOR EVALUATION: Febrile illness with marked encephalopathy, also respiratory failure. HISTORY OF PRESENT ILLNESS: Chart reviewed, patient examined. This is a 77-year-old with fairly extensive medical history, O2-requiring COPD, baseline 3 liters, resides in a facility, admitted through the Emergency Room with complaints of progressive dyspnea, profound encephalopathy. He was quite combative. Did have some nausea with emesis as well. Evaluation noted moderate pyuria, was found to be hypoxemic, early right basilar pneumonitis complicated by effusion. Was empirically started on combination therapy with fluconazole, cefepime and vancomycin. He is still somewhat erratic. It is difficult to ascertain details of history, lack of recall. Was found to have lactic acid of 1.5. White count was elevated at 17.6. Urine and blood cultures are pending. ALLERGIES: PENICILLIN, CODEINE, ASPIRIN, QUININE, LATEX. CURRENT MEDICATIONS: Include prednisone, vancomycin, oxybutynin, fluconazole, insulin, cyanocobalamin, multivitamin, folic acid, metoclopramide, finasteride, escitalopram, pantoprazole, rivaroxaban, metoprolol, Haldol as needed, cefepime, ipratropium, albuterol inhaler and lorazepam. PAST MEDICAL HISTORY: As described above, O2-requiring COPD, history of atrial fibrillation, renal carcinoma, post nephrectomy, history of some dementia, does have a colostomy. SOCIAL HISTORY: Nonsmoker, no ethanol. FAMILY HISTORY: Noncontributory. REVIEW OF SYSTEMS: Not reliably obtained due to his encephalopathy. PHYSICAL EXAMINATION: GENERAL: Appears chronically ill, mildly undernourished, actually fairly animated, does [place] [address] CONSULTATION Name: SANDOR MANSFIELD Room: [address]#: [id number] Admission: 09/03/18 Attend Phys: Ricardo Reddy MD Discharge: Date of : 38 Report #: [id number] VITAL SIGNS: Temperature initially 100, repeat was 97.9, pulse 83, respirations 16, blood pressure 133/57. SKIN: Warm. HEENT: Extraocular muscles intact. NECK: Supple. LUNGS: Diminished breath sounds, especially on the right side. HEART: Irregular. I do not appreciate a murmur. ABDOMEN: Soft, nontender. There are no peritoneal signs. SKIN: Per report, has a large sacral decubitus ulcer. He was not willingly compliant to evaluate. LABORATORY DATA: Chest x-ray as described above. TSH of 1.500. Electrolytes, sodium 141, potassium 4.1, chloride 105, bicarbonate is 28, anion gap of 8, BUN and creatinine 17 and 0.9, estimated GFR of 81. CBC on followup white count of 16.6, H and H 10.6 and 32.7, platelets of 278. Urinalysis 16-25 white cells, greater than 30 bacteria, yeast are present. ABGs: pH 7.399, pCO2 of 39.6, pO2 of 70.9 on 5 liters. Lactic acid 1.5. Liver function tests unremarkable. Albumin of 3.2, total protein of 8.1. Hepatic transaminases were normal. ASSESSMENT AND PLAN: Pneumonitis in the setting of fever. Continue empiric antimicrobial therapy at this point, suspect has a complicated urinary tract infection as well. We will await results. Continue wound care as prescribed. It is not entirely clear what his baseline mental status is at this point. We will continue to monitor expectantly. <ELECTRONICALLY SIGNED> By: Marvin Amaro MD 09/05/18 0808 1513 1843Josuzette Amaro MD /nt
--- NOTE | 2018-09-05 09:05 | NUR ---
Nutrition: Consult for wound. Pt has nonhealing surgical wound. RD saw pt in July for same thing. Admitted with PNA. Wt: 223#. Soft diet. Will see outpatient wound clinic after discharge. Albumin 3.2. RD ordered Chris t.i.d. to aid in wound healing. No other nutrition issues noted. Recommend MVI use. Consider mild risk.
--- NOTE | 2018-09-05 09:37 | CON ---
[address] [address] CONSULTATION Name: SANDOR MANSFIELD Room: [address] IN .R.#: [id number] Admission: 09/03/18 Attend Phys: Ricardo Reddy MD Discharge: Date of : 38 Report #: [id number] THIS REPORT FOR: //name// CC: Morro Reddy HISTORY OF PRESENT ILLNESS: The patient is a 77-year-old male patient who apparently has a background history of dementia. He was admitted to this facility on 09/03/2018 with a chief complaint of shortness of breath. He has chronic respiratory failure. At baseline, he is on 3 liter oxygen. Initially, he tried actually to punch people. When I saw him this morning, he was more comfortable. He is a poor historian, but I was able to gather from the patient that in the past it was recommended for him to be on modified diet, specifically thickened liquid and he told me, "I will not do it and I will throw it back at you." He had no nausea, no vomiting, no back pain. Apparently, he was requiring significant amount of oxygen when he was hospitalized, but his oxygen needs improved. He is back to his baseline oxygen now, which is around 3-4 liters. 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 There is mention of noncompliance in his records. PAST MEDICAL HISTORY: History of cognitive impairment; COPD; kidney cancer; AFib; edema; urinary retention, status post suprapubic catheter. PAST SURGICAL HISTORY: Cognitive impairment, ulcers, colostomy, abdominoperineal resection and dehiscence. SOCIAL HISTORY: He does not smoke, drink alcohol or abuse drugs at this point. He is a resident of nursing facility. FAMILY HISTORY: Noncontributory. REVIEW OF SYSTEMS: Twelve-point attempted with the patient and negative other than as mentioned above, although the patient is a poor historian. MEDICATIONS: He is on albuterol, zinc oxide, nystatin, hydrocodone, Zofran, Lasix, Breo, gabapentin, metoprolol. PHYSICAL EXAMINATION: VITAL SIGNS: He was on 4 liters oxygen with saturation more than 90%, blood pressure 130/90, pulse rate of 83, temperature 36.7. GENERAL APPEARANCE: Awake, alert. HEAD: Normocephalic, atraumatic. EYES: Pupils reactive to light. ORAL CAVITY: Moist mucous membrane. Mallampati of 2. NECK: Supple. Full range of movement. CHEST: Diminished air movement bilaterally, prolonged expiratory phase with end-expiratory rhonchi, [place] [address] CONSULTATION Name: SHYLASANDOR Renard Room: [address] IN ..#: [id number] Admission: 09/03/18 Attend Phys: Ricardo Reddy MD Discharge: Date of : 38 Report #: [id number] HEART: S1, S2, no murmur. ABDOMEN: Benign, soft, lax, nontender, positive bowel sounds. No masses felt. EXTREMITIES: Lower extremity, trace edema. No calf tenderness. SKIN: Normal for age and race, no rash. PSYCHIATRIC: Mood and affect difficult to evaluate, but he looked happier today. NEUROLOGIC: Moving 4 extremities spontaneously. No focal weakness. LABORATORY DATA: His ABGs 7.39/39/70 and this was done on 5 liters oxygen. On the day of admission, white blood count 17.6, hemoglobin 11.7 and platelets of 318. Creatinine of 0.9, BUN of 17, potassium 4.1, sodium 141. His BNP was elevated at 1295. He had 2 sets of chest x-ray that showed signs of vascular congestion with bilateral basal infiltrate. IMPRESSION: 1. Gnqni-ae-vqhznll hypoxic respiratory failure. 2. Chronic obstructive pulmonary disease. 3. Pulmonary infiltrate. 4. Pneumonia. 5. Fluid overload. 6. Urinary tract infection. 7. Cognitive impairment. RECOMMENDATIONS: The patient currently is on antibiotics. I agree with scheduled nebulization treatments. He is on cefepime, vancomycin and levofloxacin. He is on IV steroids. The patient has a history of dysphagia and he told us he will not comply. I would still recommend aspiration precaution and if we can get Speech, to evaluate him again. No active wheezes at this point, can start weaning the steroids down. Thank you for the consult. <ELECTRONICALLY SIGNED> By: Berto Barrett MD 09/05/18 0937 1023 [id number] Barrett MD /nt
[2018-09-05 11:47] VITALS: BP 136/75
[2018-09-05 16:08] VITALS: BP 118/57
--- NOTE | 2018-09-05 17:02 | NUR ---
VSS, ASSUMED CARE OF PT THIS AM, ASSESSMENT PERFORMED AND CHARTED, FALL PRECAUTIONS IN PLACE AND CALL LIGHT IN REACH, PT IS A&O4, HAS BOBBY IN PLACE AND IS DRAINING, HAS COLOSTOMY BAY, HAS WOUND ON BUTT, HAS PAIN IN BACK AND BUTT, IS BED REST, Q2 TUEN, AFLUTTER ON THE MONITOR, HIS GOAL IS TO IMPROVE BREATHING. PT WEARS 2-4 L NC, WILL FOLLOW WITH PLAN OF CARE AND AT THIS TIME HOURLY ROUNDS COMPLETED AND NO STATUS CHANGE.
[2018-09-05 20:00] VITALS: BP 123/73
[2018-09-06] VITALS: BP 131/62
--- NOTE | 2018-09-06 00:33 | NUR ---
PT HAS HAD SEVERAL EPISODES OF EXTREME TEODORA. RATES CLOSE TO 30. WILL RECOVERY QUICKLY BACK TO 40'S AND 50'S. TRACING A FLUTTER. STRIP PRINTED AND PLACED IN THE CHART.
[2018-09-06 04:00] VITALS: BP 155/71
--- NOTE | 2018-09-06 05:23 | NUR ---
ASSUMED PT CARE AT 1930, PT IS A&OX4, PT IS TRACING AFLUTTER, AT TIMES HR DROPS TO 30'S-20'S. NOTIFIED, CARDIAC CONSULT PLACED THIS SHIFT. PT IS NPO RA SATTING MID TO HIGH 90'S. PT REPORTS HE MUST WEAR 4L NC. HAS NASAL CANULA IN PLACE, BUT NO O2 ON. PT REFUSED INSULIN LAST NIGHT. IVF INSUGING PER OCT. PT HAS A COLOSTOMY, WELL A SUPRAPUBIC CATHETER IN PLACE. PT HAS A WOUND TO BUTTOCK. WOUND CLEANED AND DRESSING CHANGED BY DAY RN AND WOUND NURSE. PT IS ON ISOLATION FOR MRSA IN HIS WOUND. PT TAKES PILLS IN APPLESAUCE, COUGHS AFTER DRINKING THIN LIQUIDS, SUGGESTED THICKENED LIQUIDS TO PREVENT ASPIRATION, PT REFUSED DESPITE EDUCATION. BED IN LOW POSITION, CALL LIGHT IN REACH, BEDC ALARM ON. HOURLY ROUNDING COMPLETED FOR PT SAFETY.
[2018-09-06 12:00] VITALS: BP 129/69
[2018-09-06 15:58] VITALS: BP 141/58
--- NOTE | 2018-09-06 18:41 | NUR ---
PATIENT COMFORTABLE REFUSED INSULIN. DENIES PAIN AT THIS TIME. AFEBRILE PROGRESSING SLOWLY.
[2018-09-06 20:00] VITALS: BP 143/76
[2018-09-07] VITALS: BP 137/71
[2018-09-07 04:00] VITALS: BP 147/75
[2018-09-07 08:00] VITALS: BP 120/64
--- NOTE | 2018-09-07 11:58 | NUR ---
ASSUMED PT CARE AT 0730 REPORT RECEIVED FROM NURSE. PT IS AOX4 AFLUTTER ON SUPPLY TECH. TEODORA RYHTM. NO COMPLAINT OF PAIN. SUPRPUBIC CATHETER IN. OSTOMY BAG CLEAN AND EMPTY. IV FLUID INFUSING. IV ABX GIVEN. Q2TURN PERFORMED. PT WENT DOWN FOR PACER PLACEMNET PER DR CHARLES AT 11:00. OXYGEN BROUGHT WITH PT IN BED WITH TWO NURSE. PT REQUIRED SECURITY TO KEEP HIS VALUABLE BELONGING. SECURITY IN ROOM COUNT MONEY WITH NURSE. PAPER FILLED OUT. PT SIGNED PAPER. AND COPY KEPT WITH PT. WILL CONTINUE TO MONITOR PT.
--- NOTE | 2018-09-07 12:32 | EKG ---
[place] [address] ELECTROCARDIOGRAM REPORT Name: SANDOR MANSFIELD Room: [address] ADM IN M.R.#: [id number] Admission: 09/03/18 Attend Phys: Ricardo Reddy MD Discharge: Date of : 38 Report #: [id number] THIS REPORT FOR: //name// [facility] Test Date: 2018-09-07 Test Time: 08:23:19 Pat Name: SANDOR MANSFIELD Department: Room: [address] Gender: M Rip Saw Operator: : 1940 Requested By: Victor M Quiles Order Number: [id number] Kiersten MD: oSn Alejandre Measurements Intervals [place] Rate: 39 P: [place]: QRS: 40 QRSD: 92 T: 47 QT: 516 QTc: 416 Interpretive Statements Atrial flutter Low voltage, extremity leads Compared to ECG 09/03/2018 08:51:31 No significant changes Electronically Signed On 09-07-2018 12:32:20 INDUSTRIAL HYGIENE MANAGER by Son Alejandre [email or web address] <ELECTRONICALLY SIGNED> By: Son Alejandre MD, [facility] 09/07/18 1232 2 2 Son Alejandre MD, FAC /EPI
--- NOTE | 2018-09-07 13:19 | NUR ---
pt back from slab tripper at around 1250. a paced on the classroom monitor. scripts printed and placed on chart
[2018-09-07 16:00] VITALS: BP 145/81
--- NOTE | 2018-09-07 18:20 | NUR ---
PICTURE OF WOUND TAKEN. Q2TURN PERFORMED. DRESSING IN PLACE. PT IS VERY FUSSY AND TREATS STAFF WITH DISRESPECT. OSTOMY BAG EMPTIED. SUPRPUBIC EMPTIED.
[2018-09-07 20:00] VITALS: BP 146/71
[2018-09-08] VITALS: BP 137/59
[2018-09-08 04:00] VITALS: BP 160/94
[2018-09-08 07:25] VITALS: BP 147/90
--- NOTE | 2018-09-08 08:26 | NUR ---
ASSUMED PT CARE @ 1930. PT WAS JOKING AT BEGINNING OF SHIFT BUT BECAME VERY IRRITABLE AND AGITATED. PT WAS OBSERVED TOUCHING A FEMALE STAFF MEMBER WHILE BEING TURNED AND CHANGING BED LINENS. PT REPORTED HE WAS"TICKLING HER." PT CONTINUED EVEN AFTER THE STAFF MEMBER TOLD HIM TO STOP AND ONE OF THE 2 NURSES PRESENT TOLD HIM THAT WAS INNAPPROPRIATE AND NOT TO TOUCH HER. PT BEGAN TO "TICKLE" THE FEMALE STAFF MORE AND IN "INAPPROPORIATE AREAS" THE FEMALE STAFF MEMBER DESCRIBED LATER. PRIMARY RN SPOKE WITH PT AFTERWARDS AND INFORMED HIM HE SHOULD NOT "TICKLE OR TOUCH" THE FEMALE STAFF MEMBER AGAIN IT "MADE HER FEEL UNCOMFORTABLE AND WAS INAPPROPRIATE." PT RESPONDED WITH "FLUFF MY PILLOW." TO WHICH THIS PRIMARY RN STATED, "IF YOU ARE GOING TO TOUCH HER AGAIN IM NOT GOING TO ALLOW HER TO COME IN YOUR ROOM." TO WHICH PT REPLIED, "FINE. DON'T LET HER COME IN!" PT BECAME MORE IRRITABLE THROUGH SHIFT AND WAS GIVEN ATIVAN. PT FELL ASLEEP AND RESTED REMAINDER OF SHIFT.
[2018-09-08 11:54] VITALS: BP 151/88
--- NOTE | 2018-09-08 12:47 | CON ---
[facility] [address] [place] [address] CONSULTATION Name: SANDOR MANSFIELD Room: [address]#: [id number] Admission: 09/03/18 Attend Phys: Ricardo Reddy MD Discharge: Date of : 38 Report #: [id number] THIS REPORT FOR: //name// CC: Morro Reddy INDICATION: Atrial fibrillation. HISTORY OF PRESENT ILLNESS: The patient is a 77-year-old gentleman with chronic atrial fibrillation. He has been chronically anticoagulated with Xarelto and having no bleeding problems. He has been rate controlled with metoprolol succinate 25 mg daily. Over the last day or so he has had episodes of significant slow ventricular response to his atrial fibrillation. He remains essentially asymptomatic with this. He is without cardiac complaint. PAST MEDICAL HISTORY: 1. COPD. 2. Chronic atrial fibrillation. 3. History of renal cell carcinoma. 4. Edema. 5. Suprapubic catheter in place. 6. Status post colectomy with colostomy placement. 7. Myelodysplastic disease. FAMILY HISTORY: Noncontributory. SOCIAL HISTORY: The patient is a lifelong nonsmoker. He does not drink alcohol. CURRENT MEDICATIONS: Vitamin C 500 mg p.o. b.i.d., Zyprexa 5 mg p.o. at bedtime, nystatin topically b.i.d., prednisone 60 mg p.o. daily, vancomycin, oxybutynin 5 mg p.o. b.i.d., latanoprost eyedrops at bedtime, fluconazole IV daily, sliding scale insulin, vitamin B12 at 500 mcg daily, multivitamin 1 tablet daily, Senokot 1 tablet daily, folate 1 mg daily, Reglan 5 mg q.a.c., finasteride 5 mg daily, Lexapro 10 mg daily, Protonix 40 mg daily, Xarelto 20 mg q. dinner, metoprolol succinate 25 mg daily. ALLERGIES: PENICILLIN, CODEINE, ASPIRIN, QUININE, ADHESIVE TAPE, LATEX AND BAND-AIDS. PHYSICAL EXAMINATION: VITAL SIGNS: Blood pressure 155/71, pulse is in the 50s and irregular. GENERAL: This is a pleasant gentleman, in no distress. Mood and affect appropriate. HEENT: Extraocular muscles intact. Mucous membranes moist. NECK: Shows no jugular venous distention. There are no carotid bruits. CHEST: Reveals [place] [address] CONSULTATION Name: SANDOR MANSFIELD Room: [address]#: [id number] Admission: 09/03/18 Attend Phys: Ricardo Reddy MD Discharge: Date of : 38 Report #: [id number] CARDIOVASCULAR: Reveals an irregularly irregular rhythm without gallop or murmur. ABDOMEN: Reveals normal bowel sounds. Colostomy bag in place. EXTREMITIES: Shows trace tibial and ankle edema. SKIN: Dry. LABORATORY DATA: Reviewed. White blood cell count 18.1, hemoglobin 9.7, platelet count 292,000. Sodium 143, potassium 4.0, chloride 107, bicarbonate 27, BUN 23, creatinine 0.8, serum glucose 146, calcium 9.4, EGFR 93. IMPRESSION AND RECOMMENDATIONS: 1. Chronic atrial fibrillation. The patient is anticoagulated. Continue Xarelto 20 mg daily. Rate is somewhat slow on occasion. I will decrease his Toprol-XL to 12.5 mg daily and follow. If we run into trouble with fast heart rates alternating with slow heart rates, may need to consider single chamber pacemaker. 2. Chronic obstructive pulmonary disease appears stable at this point. 3. Pneumonia. The patient is on antibiotics and steroids at this time. <ELECTRONICALLY SIGNED> By: Son Alejandre MD, FACC 09/08/18 1247 1010 1408Son Alejandre MD, FACC /nt
[2018-09-08 15:34] VITALS: BP 168/93
--- NOTE | 2018-09-08 15:45 | EKG ---
[place] [address] ELECTROCARDIOGRAM REPORT Name: SANDOR MANSFIELD Room: [address] ADM IN .R.#: [id number] Admission: 09/03/18 Attend Phys: Ricardo Reddy MD Discharge: Date of : 38 Report #: [id number] THIS REPORT FOR: //name// [facility] Test Date: 2018-09-08 Test Time: 08:18:40 Pat Name: SANDOR MANSFIELD Department: Room: [address] Gender: M Corporate Law Assistant: : 1940 Requested By: Son Alejandre Order Number: [id number] Kiersten MD: Imtiaz Barrett Measurements Intervals [place] Rate: 69 P: 0 CO: 203 QRS: -69 QRSD: 171 T: 90 QT: 485 QTc: 520 Interpretive Statements Ventricular-paced rhythm No further analysis attempted due to paced rhythm Compared to ECG 09/07/2018 08:23:19 Atrial flutter no longer present Electronically Signed On 09-08-2018 15:44:53 APPRENTICE FUNERAL DIRECTOR by Imtiaz Barrett [email or web address] <ELECTRONICALLY SIGNED> By: Imtiaz Barrett MD, [facility] 09/08/18 1544 7 7 Imtiaz Barrett MD, [facility] /EPI
--- NOTE | 2018-09-08 15:45 | EKG ---
[place] [address] ELECTROCARDIOGRAM REPORT Name: SANDOR MANSFIELD Room: [address] ADM IN M.R.#: [id number] Admission: 09/03/18 Attend Phys: Ricardo Reddy MD Discharge: Date of : 38 Report #: [id number] THIS REPORT FOR: //name// [facility] Test Date: 2018-09-08 Test Time: 08:20:13 Pat Name: SANDOR SUMMERSMONS Department: Room: [address] Gender: M Windscreen Fitter: : 1940 Requested By: Son Alejandre Order Number: [id number] Kiersten MD: Imtiaz Barrett Measurements Intervals [place] Rate: 69 P: [place]: QRS: -69 QRSD: 168 T: 91 QT: 474 QTc: 508 Interpretive Statements Afib/flutter and ventricular-paced rhythm No further analysis attempted due to paced rhythm Electronically Signed On 09-08-2018 15:45:26 BURRER HAND by Imtiaz Barrett [email or web address] <ELECTRONICALLY SIGNED> By: Imtiaz Barrett MD, [facility] 09/08/18 1545 0820 9 Imtiaz Barrett MD, FACC /EPI
--- NOTE | 2018-09-08 15:54 | NUR ---
Pt requested that CM fax referrals to [facility] for possible LTC placement. CM faxed, awaiting decisions
--- NOTE | 2018-09-08 19:05 | NUR ---
PT ALERT AND ORIENTED. TELE TRACKING A PACED RHYTHM FOR MAJORITY OF SHIFT. CATH AND OSTOMY PATENT WITH ADEQUATE OUTPUT. Q2 TURNS. THIS EVENING TELE DISPLAYING WIDE COMPLEX TACHYCARDIA- EKG OBTAINED AND ORDERS FOLLOWED PER SCREWHEAD STONER AND POLISHER. AMIO GTT INFUSING PER ORDERS. PT ASYMPTOMATIC WITH NORMAL BLOOD PRESSURES AT THIS TIME. EDUCATED ON SAFETY AND PLAN OF CARE. PLEASE SEE ASSESSMENT FOR ADDITIONAL INFORMATION. WILL CONTINUE TO MONITOR
[2018-09-08 20:00] VITALS: BP 123/60
[2018-09-09] VITALS (7 sets, daily range): BP systolic 118–144; BP diastolic 68–92
--- NOTE | 2018-09-09 03:30 | NUR ---
ASSUMED PT CARE @ 1930. PT SLEEPING AT BEGINNING OF SHIFT. WOKE UP EASILY FOR MEDS. TRACING V-PACED TACHYCHARDIA ON MONITOR. ASYMPTOMATIC. A+OX4. COMPLIANT WITH TURNS AND REPOSITIONING. NORCO GIVEN FOR LEFT SHOULDER PAIN (CHRONIC). PRN ATIVAN EFFECTIVE FOR ANXIETY. CALL LIGHT IN REACH. HOURY ROUNDING FOR SAFETY.
[2018-09-09 06:03] LABS: HEMATOCRIT 33.8 % (42.0-52.0); HEMOGLOBIN 10.8 gm/dL (14.0-18.0); MCH 26.6 pg (26.0-34.0); MCV 83.2 fL (80.0-100.0); MPV 7.9 fl. (7.2-11.1); RBC 4.06 mil/uL (4.50-6.00); RDW-CV 15.7 % (10.5-14.5); WBC 14.2 thou/uL (4.0-11.0)
[2018-09-09 06:15] LABS: CALCIUM 9.2 mg/dL (8.5-10.1); CREATININE 0.8 mg/dL (0.6-1.3); POTASSIUM 3.9 mmol/L (3.5-5.1)
[2018-09-09 06:21] LABS: URINE BILIRUBIN NEGATIVE (Negative); URINE BLOOD 1+ (Negative); URINE CLARITY CLEAR; URINE COLOR YELLOW; URINE GLUCOSE-RANDOM NEGATIVE (Negative); URINE KETONES NEGATIVE (Negative); URINE LEUKOCYTES-REFLEX TRACE (Negative); URINE NITRITE-REFLEX NEGATIVE (Negative); URINE PROTEIN NEGATIVE (Negative); URINE SPECIFIC GRAVITY >= 1.030 (1.005-1.030); URINE UROBILINOGEN 0.2 E.U./dl (0.2-1.0)
[2018-09-09 06:27] LABS: AMORPHOUS URATES Few /LPF (None Seen); BACTERIA-REFLEX 1-9 Few /HPF (None Seen); COARSE GRANULAR CASTS 0-3 Few /LPF (None Seen); FINE GRANULAR CASTS 0-3 Few /LPF (None Seen); HYALINE CASTS 0-3 Few /LPF (None Seen); MUCUS 4-6 Moderate strn/LPF (None Seen); SQUAMOUS 0-3 Few /LPF (0-3); URINE RBC 3-10 Few /HPF (0-2); URINE WBC-REFLEX 6-15 Few /HPF (0-5)
--- NOTE | 2018-09-09 08:29 | NUR ---
Monserrat fay [facility] Maddi to come and meet/assess Pt today
--- NOTE | 2018-09-09 15:07 | EKG ---
[place] [address] ELECTROCARDIOGRAM REPORT Name: SANDOR MANSFIELD Room: [address] ADM IN M.R.#: [id number] Admission: 09/03/18 Attend Phys: Ricardo Reddy MD Discharge: Date of : 38 Report #: [id number] THIS REPORT FOR: //name// [facility] Test Date: 2018-09-08 Test Time: 16:57:49 Pat Name: SANDOR SUMMERSMONS Department: Room: [address] Gender: M Outside Sales Advertising Executive: : 1940 Requested By: Ricardo Reddy Order Number: [id number] Reading MD: Imtiaz Barrett Measurements Intervals [place] Rate: 125 P: 99 [place]: 180 QRS: -77 QRSD: 210 T: 103 QT: 448 QTc: 647 Interpretive Statements A-V dual-paced rhythm with some inhibition No further analysis attempted due to paced rhythm Compared to ECG 09/08/2018 08:20:13 rate increased Electronically Signed On 09-09-2018 15:07:25 TEST TUBE MAKER by Imtiaz Barrett [email or web address] <ELECTRONICALLY SIGNED> By: Imtiaz Barrett MD, [facility] 09/09/18 1507 1657 1657 Imtiaz Barrett MD, [facility] /EPI
--- NOTE | 2018-09-09 16:15 | CARD ---
[address] [address] CARDIAC CATH REPORT Name: SANDOR MANSFIELD Room: [address] IN [facility]#: [id number] Admission: 09/03/18 Attend Phys: Ricardo Reddy MD Discharge: Date of : 38 Report #: [id number] THIS REPORT FOR: //name// APPROVED REPORT Study performed: 09/07/2018 11:02:12 Patient Status: In-Patient Room #: 200 Event Personnel: Son Alejandre Transport Aide, Elaine Villasenor RN City Surveyor, Kanchan Felipe RN Monitor, Amee LozadaIS Scrub Exam: Insertion of Dual Chamber Permanent Pacemaker Indications: Sinus Bradycardia (Persistant) The patient is a 78 year-old male with a history of Atrial Fibrillation, Symptomatic Bradycardia. Conscious Sedation Fentanyl 100 mcg Versed 2 mg Implanted Devices: [employer] Eluna 8 DRT pro-MRI, model #26906, serial number [id number] dual-chamber pulse generator. Biotronik Solia S 53, model #719410, serial #[id number] atrial lead. Biotronik Solia S 60, model #456030, serial #[id number] ventricular lead. Procedure The patient underwent informed consent. We discussed the details of the procedure including the risks, which include, but not limited to bleeding, infection, vascular damage, cardiac perforation, and pneumothorax. After informed consent was obtained the area of the left chest was prepped and draped in sterile fashion. Local anesthesia was achieved with 1% lidocaine. Next after an initial incision was made a device pocket was formed over the left pectoralis muscle using electrocautery and blunt dissection. Next using a micropuncture kit on 2 separate occasions the left subclavian vein was accessed. Ultimately a safety J guidewire was advanced on both occasions to a secure position within the right atrium. One of the guidewires was externally fixed with a Vianey forcep. A 7 Guamanian tear-away introducer was advanced over the free guidewire. The dilator and guidewire were removed and a ventricular lead advanced to a secure position within the right ventricular apex. The lead was actively fixed. Thresholds were checked and deemed to be satisfactory. The tear-away introducer was then removed. Next a second 7 Guamanian tear[place] [address] CARDIAC CATH REPORT Name: SANDOR MANSFIELD Room: [address]#: [id number] Admission: 09/03/18 Attend Phys: Ricardo Reddy MD Discharge: Date of : 38 Report #: [id number] advanced over the remaining guidewire. The dilator and guidewire were removed and an atrial lead advanced to a secure position within the right atrial appendage. The lead was actively fixed. We were unable to check thresholds due to patient being in atrial flutter. The flutter waves appear to be adequately sensed. There was no phrenic nerve stimulation with maximum output pacing. The tear-away introducer was then removed. After adequate slack was assured in the atrial and ventricular leads the leads were secured within the device pocket using the designated cuffs and interrupted stitches of 0 silk suture. The device pocket was flushed with antibiotic solution. Next a dual-chamber pacing generator was attached to the atrial and ventricular lead. The generator and redundant lead were then placed within the device pocket. The deep tissues were closed with 2-0 Vicryl suture in interrupted stitches. The skin incision was then closed with a single subcuticular stitch of 4-0 Vicryl. Several Steri-Strips were placed across the incision. A sterile Telfa dressing was then covered with a Tegaderm. The patient tolerated procedure well without complication. Electrode Parameters P Wave: 2.6 mV R Wave: 8.2 mV Atrial Threshold: not checked Ventricular Threshold: 1.0 V at 0.40 ms. 1.0 V at 0.40 ms. Atrial Resistance: 409 ohms Ventricular Resistance: 782 ohms Complications The patient tolerated the procedure well and there were no complications associated with the procedure. Findings 1. Sick sinus syndrome. 2. Successful placement of a dual-chamber pacemaker with atrial and ventricular lead placement. Recommendations 1. Follow-up site check in one week. <ELECTRONICALLY SIGNED> By: Son Alejandre MD, FACC 09/09/18 1615 1615 1615Michaenatali Alejandre MD, FACC /INF
--- NOTE | 2018-09-09 18:54 | NUR ---
PATIENT RESTING IN BED. FREQUENT REPOSITIONING AND TENDING TO PATINETS MULTIPLE NEEDS TODAY. COLOSTOMY BAG CHANGED DUE TO LEAKING SEAL. VITAL SIGNS STABLE AND PATINET IN NOAPPARENT SIGNSD OF DISTRESS. HOURLY ROUNDING COMPLETED FOIR PATINET SAFETY.
[2018-09-10] VITALS: BP 138/84
--- NOTE | 2018-09-10 03:56 | NUR ---
ASSUMED PT CARE @ 1930. PT A+OX4. PT DENIES SOA. NO COUGH REPORTED OR OBSERVED THIS SHIFT. POOR BOUNDARIES GRABBING @ FEMALE STAFF. PACEMAKER INCSION AND STERI STRIPS DRY AND INTACT. IRRITABLE WHEN REDIRECTED. ATIVAN PRN GIVEN-EFFECTIVE. PT HAS SLEPT THROUGH MOST OF THE NIGHT. CALL LIGHT IN REACH. HOURLY ROUNDING FOR SAFETY.
[2018-09-10 04:00] VITALS: BP 141/82
[2018-09-10 08:30] VITALS: BP 161/95
--- NOTE | 2018-09-10 10:25 | NUR ---
RECEIVED REPORT FROM LAMINATION BUILDER NURSE. PATIENT IS AXOX4, ASSESSMENT CHARTED. ALL QUESTIONS ANSWERED. DENIES NAUSEA OR SHORTNESS OF AIR. HAS SOME PAIN, MEDICATIONS GIVEN AND REASSESSED. PATIENT WOULD LIKE TO GO HOME TODAY, WAITING FOR DOCTORS TO ROUND. NO CONCERNS VOICED AT THIS TIME. SALES CENTER ASSOCIATE IN PLACE, CALL LIGHT IN REACH.
[2018-09-10 11:53] VITALS: BP 124/66
[2018-09-10] MEDS ORDERED: TOPROL XL50 MG PO (14:04)
[2018-09-10] MEDS ORDERED: PACERONE 200 M200 M1 PO (14:07)
[2018-09-10] MEDS ORDERED: SENNA PLUS TAB1 EACH PO (14:08)
[2018-09-10] MEDS ORDERED: ZYPREXA 5 MG TAB5 M1 PO (14:08)
[2018-09-10] MEDS ORDERED: PREDNISONE 20 M20 MG PO (14:10)
[2018-09-10] MEDS ORDERED: VITAMIN B-12500 MCG PO (14:11)
[2018-09-10] MEDS ORDERED: VITAMINC500 PO (14:11)
--- NOTE | 2018-09-10 14:38 | NUR ---
Pt discharging to [facility] today, facility to orange picking supervisor Pt and take him to [facility] to orange picking supervisor his belongings, then transport him to [facility]. Pt in agreement with POC. Faxed dc orders. Chart copied. Nurse report number provided, 149. No family to update.
--- NOTE | 2018-09-10 15:48 | NUR ---
report called and given to meghna. all questions answered. patient transfered by wheelchair van to [facility]. all belongings sent with patient.
== END 2018-09-10 16:05 | DRG 853 ==
LOC: M.ERS 08:39 → M.TBA-ER 09:46 → M.2W 09:46
PROVIDERS: Family Medicine; Specialist; ADMIT Family Medicine
PROC: 05HY33Z Insertion of Infusion Device into Upper Vein, Percutaneous Approach (ICD-10-PCS; principal; 2018-09-04)
PROC: 02HK3JZ Insertion of Pacemaker Lead into Right Ventricle, Percutaneous Approach (ICD-10-PCS; 2018-09-07)
PROC: 0JH606Z Insertion of Pacemaker, Dual Chamber into Chest Subcutaneous Tissue and Fascia, Open Approach (ICD-10-PCS; 2018-09-07)
PROC: 02H63JZ Insertion of Pacemaker Lead into Right Atrium, Percutaneous Approach (ICD-10-PCS; 2018-09-07)
DX: A41.9 Sepsis, unspecified organism (principal); J96.21 Acute and chronic respiratory failure with hypoxia; J18.1 Lobar pneumonia, unspecified organism; J44.1 Chronic obstructive pulmonary disease with (acute) exacerbation; J44.0 Chronic obstructive pulmonary disease with (acute) lower respiratory infection; N39.0 Urinary tract infection, site not specified; I49.5 Sick sinus syndrome; I50.9 Heart failure, unspecified; F32.9 Major depressive disorder, single episode, unspecified; F03.90 Unspecified dementia, unspecified severity, without behavioral disturbance, psychotic disturbance, mood disturbance, and anxiety; I48.2 Chronic atrial fibrillation; B37.9 Candidiasis, unspecified; L89.159 Pressure ulcer of sacral region, unspecified stage; I48.0 Paroxysmal atrial fibrillation; B96.20 Unspecified Escherichia coli [E. coli] as the cause of diseases classified elsewhere; S20.211A Contusion of right front wall of thorax, initial encounter; X58.XXXA Exposure to other specified factors, initial encounter; Y93.89 Activity, other specified; Y92.89 Other specified places as the place of occurrence of the external cause; Y99.8 Other external cause status; Z85.528 Personal history of other malignant neoplasm of kidney; Z93.3 Colostomy status; Z79.51 Long term (current) use of inhaled steroids; Z79.899 Other long term (current) drug therapy; Z88.6 Allergy status to analgesic agent; Z91.040 Latex allergy status; Z88.5 Allergy status to narcotic agent; Z88.0 Allergy status to penicillin; Z88.8 Allergy status to other drugs, medicaments and biological substances; Z91.048 Other nonmedicinal substance allergy status

== ENCOUNTER 2018-09-22 10:42 | Inpatient (IN) | payer MEDICARE ==
[~2018-09-22] VITALS: Ht 185.4 cm; Wt 108.0 kg
[~2018-09-22 10:42] MED LIST changes: +EUCERIN CREME57 GM TOP; +NYAMYC15 GM TOP; +OXYGEN NASAL; +PACERONE 200 M200 M1 PO; +PREDNISONE 20 M20 MG PO; +SENNA PLUS TAB1 EACH PO; +SKIN PROTECTAN113 GM TOP; +TOPROL XL50 MG PO; +VITAMIN B-12500 MCG PO; +VITAMINC500 PO; +ZOFRAN ODT4 MG DISSOLVE; +ZYPREXA 5 MG TAB5 M1 PO
[2018-09-22 10:44] VITALS: BP 147/75
[2018-09-22 11:02] LABS: HEMATOCRIT 44.3 % (42.0-52.0); HEMOGLOBIN 14.4 gm/dL (14.0-18.0); MCH 27.2 pg (26.0-34.0); MCHC 32.4 g/dL (28.0-37.0); MCV 83.9 fL (80.0-100.0); MPV 8.5 fl. (7.2-11.1); NUCLEATED RBCS 0 /100WBC; PLATELET COUNT* 280 thou/uL (150-400); RBC 5.28 mil/uL (4.50-6.00); RDW-CV 18.1 % (10.5-14.5)
[2018-09-22 11:13] LABS: APTT 27.5 Seconds (25.0-31.3); INR 1.1; PROTIME 11.4 Seconds (9.20-11.50)
[2018-09-22 11:17] LABS: ANION GAP 11 mmol/L (7-16); BUN 39 mg/dL (7-18); CALCIUM 9.6 mg/dL (8.5-10.1); CHLORIDE 101 mmol/L (98-107); CO2 26 mmol/L (21-32); CREATININE 1.1 mg/dL (0.6-1.3); GLUCOSE 183 mg/dL (70-99); POTASSIUM 4.1 mmol/L (3.5-5.1); SODIUM 138 mmol/L (136-145)
[2018-09-22 11:21] LABS: PCO2 33.6 mmHg (35.0-45.0); PO2 71.6 mmHg (75.0-100.0); pH 7.471 (7.340-7.450)
[2018-09-22 11:24] LABS: ALBUMIN 3.5 g/dL (3.4-5.0); ALKALINE PHOSPHATASE 49 U/L (46-116); NT-PRO BRAIN NAT PEPTIDE 1391 pg/mL (<300); SGOT 17 U/L (15-37); SGPT 47 U/L (30-65); TOTAL PROTEIN 7.7 g/dL (6.4-8.2); TROPONIN-I LEVEL <0.06 ng/mL (<0.06)
[2018-09-22 11:25] LABS: ABSOLUTE LYMPHOCYTES 4.6 thou/uL (0.8-5.3); ABSOLUTE MONOCYTES 1.8 thou/uL (0.0-1.2); ABSOLUTE NEUTROPHILS 28.7 thou/uL (1.6-8.1); ATYPICAL LYMPHS 6 %; PLATELET ESTIMATE ADEQUATE
[2018-09-22] MEDS ORDERED: UNICOMPLEX M TA1 TA1 PO (11:28)
[2018-09-22] MEDS ORDERED: ALPHAGAN P5 ML OPHTHALMIC (11:34)
[2018-09-22] MEDS ORDERED: BREO ELLIPTA 11 EACH INH (11:36)
[2018-09-22] MEDS ORDERED: ROBITUSSIN100 MG/53 PO (11:39)
[2018-09-22 12:50] LABS: URINE BILIRUBIN NEGATIVE (Negative); URINE BLOOD 2+ (Negative); URINE CLARITY CLEAR; URINE COLOR YELLOW; URINE GLUCOSE-RANDOM NEGATIVE (Negative); URINE KETONES NEGATIVE (Negative); URINE NITRITE-REFLEX NEGATIVE (Negative); URINE PROTEIN NEGATIVE (Negative); URINE UROBILINOGEN 0.2 E.U./dl (0.2-1.0)
[2018-09-22 12:51] LABS: URINE LEUKOCYTES-REFLEX 3+ (Negative)
[2018-09-22 13:08] LABS: SQUAMOUS 0-3 Few /LPF (0-3)
[2018-09-22 13:09] LABS: CASTS None Seen /LPF (None Seen); CRYSTALS None Seen /LPF (None Seen); MUCUS 0-3 Light strn/LPF (None Seen); URINE RBC 3-10 Few /HPF (0-2)
[2018-09-22 14:09] VITALS: BP 110/64
[2018-09-22 14:38] VITALS: BP 115/70
--- NOTE | 2018-09-22 16:21 | EKG ---
[place] [address] ELECTROCARDIOGRAM REPORT Name: SANDOR MANSFIELD Room: [place] [address] ADM IN .R.#: [id number] Admission: 09/22/18 Attend Phys: Jovan Mazariegos MD Discharge: Date of : 38 Report #: [id number] THIS REPORT FOR: //name// [facility] Test Date: 2018-09-22 Test Time: 12:02:48 Pat Name: SANDOR MANSFIELD Department: Room: [facility] Gender: M Television Mechanic: : 1940 Requested By: David Lucio Order Number: [id number] MD: Imtiaz Barrett Measurements Intervals [place] Rate: 63 P: -72 MS: 164 QRS: 27 QRSD: 88 T: -82 QT: 451 QTc: 462 Interpretive Statements Atrial-paced complexes Abnormal T, consider ischemia, diffuse leads Compared to ECG 09/08/2018 16:57:49 Ventricular-paced complex(es) or rhythm no longer present Electronically Signed On 09-22-2018 16:21:26 SUPPLY CHAIN BUSINESS ANALYST by Imtiaz Barrett [email or web address] <ELECTRONICALLY SIGNED> By: Imtiaz Barrett MD, FAC 09/22/18 1621 1202 1202 Imtiaz Barrett MD, [facility] /EPI
[2018-09-22 20:42] VITALS: BP 118/68
[2018-09-23 00:41] VITALS: BP 114/62
[2018-09-23 04:00] VITALS: BP 145/85
[2018-09-23 05:33] LABS: BASOPHILS 0.1 %; HEMATOCRIT 35.9 % (42.0-52.0); LYMPHOCYTES 4.9 %; MCH 27.8 pg (26.0-34.0); MCHC 32.9 g/dL (28.0-37.0); MCV 84.4 fL (80.0-100.0); MONOCYTES 1.4 %; MPV 8.7 fl. (7.2-11.1); NUCLEATED RBCS 0 /100WBC; POLYS 93.6 %; RBC 4.25 mil/uL (4.50-6.00); RDW-CV 17.9 % (10.5-14.5)
[2018-09-23 05:36] LABS: CALCIUM 8.8 mg/dL (8.5-10.1); POTASSIUM 3.8 mmol/L (3.5-5.1)
[2018-09-23 05:45] LABS: ABSOLUTE LYMPHOCYTES 0.9 thou/uL (0.8-5.3); ABSOLUTE MONOCYTES 0.3 thou/uL (0.0-1.2); ABSOLUTE NEUTROPHILS 17.9 thou/uL (1.6-8.1); HEMOGLOBIN 11.8 gm/dL (14.0-18.0); PLATELET COUNT* 205 thou/uL (150-400); WBC 19.1 thou/uL (4.0-11.0)
[2018-09-23 08:00] VITALS: BP 140/74
[2018-09-23 12:00] VITALS: BP 122/52
[2018-09-23 16:00] VITALS: BP 132/64
[2018-09-23 20:00] VITALS: BP 143/61
[2018-09-24] VITALS (10 sets, daily range): BP systolic 116–171; BP diastolic 58–85
--- NOTE | 2018-09-24 12:26 | CON ---
[address] [address] CONSULTATION Name: SANDOR MANSFIELD Room: [address] IN M.R.#: [id number] Admission: 09/22/18 Attend Phys: Jovan Mazariegos MD Discharge: Date of : 36 Report #: [id number] THIS REPORT FOR: //name// CC: Jovan Quiñones DATE OF SERVICE: 09/23/2018 INFECTIOUS DISEASE CONSULTATION ATTENDING PHYSICIAN: Jovan Mazariegos M.D. REASON FOR EVALUATION: Pneumonitis, likely complicated urinary tract infection as well. HISTORY OF PRESENT ILLNESS: Chart reviewed, patient examined. This is an 78-year-old gentleman, known to myself who was just discharged within the last month, has known O2-requiring COPD, baseline 3 liters. He is in a facility chronically who was evaluated in the Emergency Room after being sent for progressive dyspnea, somewhat of a cough. Denies any significant fevers. He does have ongoing issues of chronic wound pain related to his site of previous rectal resection. He has limited mobility. On evaluation, chest x-ray noted mild atelectasis and pneumonia developed in the right lower lobe. Lactic acid was elevated up to 6.4. Urinalysis did show moderate pyuria of 16-25 white cells, 10-30 bacteria. Due to suspected pneumonitis as well as complicated urinary tract infection, he was started on empiric therapy with vancomycin and levofloxacin. Review of previous cultures did have a resistant Escherichia coli noted in his urine previously in August and Klebsiella in his urine in July that was also markedly resistant, the former, which was resistant to quinolones. ALLERGIES: LISTED TO BAND-AIDS, PENICILLIN, CODEINE, ASPIRIN, QUININE, LATEX. CURRENT MEDICATIONS: Include levofloxacin, vancomycin, rivaroxaban, insulin, multivitamin, ascorbic acid, cyanocobalamin, metoprolol, amiodarone, folic acid, finasteride, oxybutynin, escitalopram, pantoprazole, ipratropium and albuterol inhaler, hydrocodone. PAST MEDICAL HISTORY: As described above, O2-requiring COPD, atrial fibrillation, history of renal cell carcinoma, post partial nephrectomy, edema, dementia, abdominoperineal resection, has got a colostomy in place, paraplegia. SOCIAL HISTORY: Former smoker. Previous ethanol. FAMILY HISTORY: Noncontributory. REVIEW OF SYSTEMS: Denies significant gastrointestinal [place] [address] CONSULTATION Name: SANDOR MANSFIELD Room: [address] IN [facility]#: [id number] Admission: 09/22/18 Attend Phys: Jovan Mazariegos MD Discharge: Date of : 38 Report #: [id number] than the rectal pain. Otherwise, unremarkable 10-point review of systems, otherwise described in the history of present illness. PHYSICAL EXAMINATION: GENERAL: He is alert. He is fairly oriented, is in moderate distress. VITAL SIGNS: Temperature 98.6, pulse 73, respirations 18, blood pressure 140/74. SKIN: Warm, dry. HEENT: Normocephalic. Extraocular muscles intact. NECK: Supple. LUNGS: Scattered coarse breath sounds. HEART: Regular, occasional ectopy. Soft systolic murmur. ABDOMEN: Soft, nontender, nondistended. EXTREMITIES: Distal lower extremities are otherwise unremarkable. GENITOURINARY: Deferred. RECTAL: Deferred. LABORATORY DATA: Blood cultures sterile thus far. Most recent CBC, white count of 19.1 that is down from 35.0 on admission, H and H 11.8 down from 14.4, hematocrit of 35.9, platelets of 205. Differential has shown neutrophilia. Electrolytes: Sodium 141, potassium 3.8, chloride 105, bicarbonate is 30, anion gap of 6, BUN and creatinine 34 and 1.0, estimated GFR of 72, glucose 162. CT abdomen and pelvis showed multiseptated peripheral enhancing fluid collection in the pelvis with posterior surgical changes along the rectum, some mild stranding inflammatory changes measures 5 x 2 x 1.8 in size. Lactic acid peaked at 6.[address] chest with left lower lobe atelectasis, pneumonia. Urinalysis as described above with 16-25 white cells, 10-30 bacteria. ASSESSMENT: Pneumonitis, complicated by respiratory failure. The patient is already in very compromised pulmonary function. In addition to that, suggests complicated urinary tract infection. He does have a longstanding indwelling West, states this has not been changed and the chronic wound per Dr. Brantley' expectation, cavity will persist. We will continue broad spectrum empiric antimicrobial therapy at this point based on most recent urine culture data. The Escherichia coli is extended spectrum beta- lactamase production. We will utilize carbapenem in addition to the vancomycin and see how it does clinically support, favor changing out the West here in next few days prior to his discharge and surgery evaluate the possibility of any additional surgical intervention, although he is at risk for any sort of intervention. We will continue to offload the site. We will see how he does clinically over the next 24-48 hours. <ELECTRONICALLY SIGNED> By: Marvin Amaro MD 09/24/18 1226 1041 [id number] Amaro MD /nt
[2018-09-25] VITALS: BP 129/64
[2018-09-25 04:00] VITALS: BP 160/84
[2018-09-25 05:26] LABS: HEMOGLOBIN 11.1 gm/dL (14.0-18.0); NUCLEATED RBCS 0 /100WBC; RBC 4.04 mil/uL (4.50-6.00); WBC 14.8 thou/uL (4.0-11.0)
[2018-09-25 05:30] LABS: ABSOLUTE LYMPHOCYTES 0.8 thou/uL (0.8-5.3); ABSOLUTE MONOCYTES 0.6 thou/uL (0.0-1.2); ABSOLUTE NEUTROPHILS 13.4 thou/uL (1.6-8.1); BASOPHILS 0.1 %; HEMATOCRIT 34.2 % (42.0-52.0); LYMPHOCYTES 5.5 %; MCH 27.5 pg (26.0-34.0); MCHC 32.5 g/dL (28.0-37.0); MCV 84.7 fL (80.0-100.0); PLATELET COUNT* 184 thou/uL (150-400); POLYS 90.4 %; RDW-CV 18.2 % (10.5-14.5)
[2018-09-25 05:32] LABS: CALCIUM 8.7 mg/dL (8.5-10.1); CREATININE 0.8 mg/dL (0.6-1.3); POTASSIUM 3.7 mmol/L (3.5-5.1)
[2018-09-25 08:29] VITALS: BP 144/76
[2018-09-25 12:27] VITALS: BP 136/74
[2018-09-25 16:31] VITALS: BP 128/64
[2018-09-25 20:00] VITALS: BP 135/65
[2018-09-26] VITALS: BP 124/75
[2018-09-26 04:00] VITALS: BP 150/74
[2018-09-26 05:46] LABS: ABSOLUTE EOSINOPHILS 0.2 thou/uL (0.0-0.7); ABSOLUTE LYMPHOCYTES 2.5 thou/uL (0.8-5.3); ABSOLUTE MONOCYTES 0.8 thou/uL (0.0-1.2); ABSOLUTE NEUTROPHILS 9.9 thou/uL (1.6-8.1); BASOPHILS 0.2 %; EOSINOPHILS 1.1 %; HEMATOCRIT 38.5 % (42.0-52.0); HEMOGLOBIN 12.1 gm/dL (14.0-18.0); LYMPHOCYTES 18.7 %; MCH 27.4 pg (26.0-34.0); MCHC 31.4 g/dL (28.0-37.0); MCV 87.1 fL (80.0-100.0); MPV 8.2 fl. (7.2-11.1); NUCLEATED RBCS 0 /100WBC; PLATELET COUNT* 149 thou/uL (150-400); RBC 4.42 mil/uL (4.50-6.00); RDW-CV 18.8 % (10.5-14.5); WBC 13.4 thou/uL (4.0-11.0)
[2018-09-26 06:04] LABS: CALCIUM 8.3 mg/dL (8.5-10.1); CREATININE 0.8 mg/dL (0.6-1.3); POTASSIUM 3.9 mmol/L (3.5-5.1)
[2018-09-26 08:00] VITALS: BP 136/70
[2018-09-26 12:35] VITALS: BP 138/62
[2018-09-26 17:08] VITALS: BP 138/57
[2018-09-26 19:40] VITALS: BP 124/56
[2018-09-27] VITALS: BP 145/62
[2018-09-27 04:00] VITALS: BP 144/70
[2018-09-27 04:58] LABS: ABSOLUTE EOSINOPHILS 0.3 thou/uL (0.0-0.7); ABSOLUTE LYMPHOCYTES 1.8 thou/uL (0.8-5.3); ABSOLUTE MONOCYTES 0.6 thou/uL (0.0-1.2); ABSOLUTE NEUTROPHILS 9.9 thou/uL (1.6-8.1); BASOPHILS 0.2 %; EOSINOPHILS 2.6 %; HEMOGLOBIN 11.7 gm/dL (14.0-18.0); LYMPHOCYTES 14.2 %; MCH 27.5 pg (26.0-34.0); MCHC 32.4 g/dL (28.0-37.0); MCV 84.8 fL (80.0-100.0); MONOCYTES 4.5 %; MPV 7.8 fl. (7.2-11.1); NUCLEATED RBCS 0 /100WBC; PLATELET COUNT* 162 thou/uL (150-400); POLYS 78.5 %; RBC 4.24 mil/uL (4.50-6.00); RDW-CV 18.2 % (10.5-14.5); WBC 12.7 thou/uL (4.0-11.0)
[2018-09-27 05:31] LABS: ALBUMIN 2.3 g/dL (3.4-5.0); CALCIUM 8.3 mg/dL (8.5-10.1); CREATININE 0.6 mg/dL (0.6-1.3); POTASSIUM 3.4 mmol/L (3.5-5.1); TOTAL BILIRUBIN 0.7 mg/dL (<0.1-1.0); TOTAL PROTEIN 5.4 g/dL (6.4-8.2)
[2018-09-27 08:42] VITALS: BP 124/79
[2018-09-27 12:00] VITALS: BP 114/60
[2018-09-27 16:00] VITALS: BP 121/60
[2018-09-27 20:00] VITALS: BP 135/60
[2018-09-28] VITALS: BP 138/71
[2018-09-28 04:00] VITALS: BP 153/73
[2018-09-28 04:42] LABS: ABSOLUTE EOSINOPHILS 0.5 thou/uL (0.0-0.7); ABSOLUTE LYMPHOCYTES 1.7 thou/uL (0.8-5.3); ABSOLUTE MONOCYTES 0.5 thou/uL (0.0-1.2); ABSOLUTE NEUTROPHILS 10.2 thou/uL (1.6-8.1); BASOPHILS 0.2 %; EOSINOPHILS 3.6 %; HEMOGLOBIN 11.7 gm/dL (14.0-18.0); LYMPHOCYTES 13.2 %; MCH 27.4 pg (26.0-34.0); MCHC 32.4 g/dL (28.0-37.0); MCV 84.6 fL (80.0-100.0); MONOCYTES 4.2 %; NUCLEATED RBCS 0 /100WBC; PLATELET COUNT* 152 thou/uL (150-400); POLYS 78.8 %; RBC 4.26 mil/uL (4.50-6.00); RDW-CV 18.1 % (10.5-14.5); WBC 12.9 thou/uL (4.0-11.0)
[2018-09-28 05:12] LABS: ALBUMIN 2.2 g/dL (3.4-5.0); CALCIUM 8.1 mg/dL (8.5-10.1); CREATININE 0.5 mg/dL (0.6-1.3); POTASSIUM 3.1 mmol/L (3.5-5.1); TOTAL BILIRUBIN 0.6 mg/dL (<0.1-1.0); TOTAL PROTEIN 5.4 g/dL (6.4-8.2)
[2018-09-28 07:43] VITALS: BP 134/68
[2018-09-28 11:38] VITALS: BP 117/65
[2018-09-28 15:45] VITALS: BP 137/65
[2018-09-28 20:00] VITALS: BP 152/74
[2018-09-29] VITALS: BP 152/74
[2018-09-29 04:00] VITALS: BP 129/41; BP 133/69
[2018-09-29 08:00] VITALS: BP 139/65
[2018-09-29 11:33] VITALS: BP 124/78
[2018-09-29 16:00] VITALS: BP 143/79
[2018-09-30] VITALS: BP 134/78
[2018-09-30 04:00] VITALS: BP 134/78
[2018-09-30 05:31] LABS: ABSOLUTE EOSINOPHILS 0.5 thou/uL (0.0-0.7); ABSOLUTE LYMPHOCYTES 1.6 thou/uL (0.8-5.3); ABSOLUTE MONOCYTES 0.7 thou/uL (0.0-1.2); ABSOLUTE NEUTROPHILS 6.4 thou/uL (1.6-8.1); BASOPHILS 0.4 %; EOSINOPHILS 5.5 %; HEMATOCRIT 34.4 % (42.0-52.0); HEMOGLOBIN 11.3 gm/dL (14.0-18.0); MCH 27.7 pg (26.0-34.0); MCHC 32.8 g/dL (28.0-37.0); MCV 84.2 fL (80.0-100.0); MONOCYTES 7.3 %; MPV 7.9 fl. (7.2-11.1); NUCLEATED RBCS 0 /100WBC; PLATELET COUNT* 151 thou/uL (150-400); POLYS 69.8 %; RBC 4.08 mil/uL (4.50-6.00); RDW-CV 18.2 % (10.5-14.5); WBC 9.2 thou/uL (4.0-11.0)
[2018-09-30 05:46] LABS: ALBUMIN 2.2 g/dL (3.4-5.0); ALKALINE PHOSPHATASE 39 U/L (46-116); ANION GAP < 0 mmol/L (7-16); BUN 8 mg/dL (7-18); CALCIUM 8.2 mg/dL (8.5-10.1); CHLORIDE 101 mmol/L (98-107); CO2 44 mmol/L (21-32); CREATININE 0.6 mg/dL (0.6-1.3); GLUCOSE 101 mg/dL (70-99); POTASSIUM 3.8 mmol/L (3.5-5.1); SGOT 10 U/L (15-37); SGPT 23 U/L (30-65); SODIUM 142 mmol/L (136-145); TOTAL BILIRUBIN 0.5 mg/dL (<0.1-1.0); TOTAL PROTEIN 5.4 g/dL (6.4-8.2)
[2018-09-30 07:45] VITALS: BP 134/68
--- NOTE | 2018-09-30 08:54 | CON ---
[address] [address] CONSULTATION Name: SANDOR MANSFIELD Room: [address] IN .R.#: [id number] Admission: 09/22/18 Attend Phys: Jovan Mazariegos MD Discharge: Date of : 38 Report #: [id number] THIS REPORT FOR: //name// CC: Jovan Quiñones DATE OF SERVICE: 09/29/2018 REQUESTING PHYSICIAN: Jovan Mazariegos M.D. HISTORY OF PRESENT ILLNESS: An 78-year-old male who has been admitted earlier this month on 09/22/2018 because of respiratory failure, lactic acidosis and leukocytosis. The patient had imaging including CT scan of the chest, which showed interval replacement of the left chest wall battery pack with cardiac electrodes. There has also been left lower lobe pneumonia, has increased narrowing at the left lower lobe segmental airway present. The patient's records have been reviewed from [facility]. Back in 06/2017, he had had a biopsy of the left upper bronchial area. 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 However, after multiple reviews, this diagnosis has been revised. I discussed these findings with the patient today and he confirmed that he was told that he does not have any lung cancer. REVIEW OF SYSTEMS: All systems were reviewed. It was negative, except the above. PAST MEDICAL HISTORY: COPD, diabetes mellitus, AFib history prior to renal cell carcinoma and dementia. The patient had colostomy and paraplegia. MEDICATIONS: Per admission list. ALLERGIES: PENICILLIN, CODEINE, ASPIRIN, QUININE, ADHESIVE TAPE AND LATEX. SOCIAL HISTORY: He is an ex-smoker. He does not have any alcohol or drug abuse. FAMILY HISTORY: Noncontributory. PHYSICAL EXAMINATION: VITAL SIGNS: Today, temperature is 36.0, pulse 78, respirations 18, blood pressure is 143/79 and SpO2 was 96% on 4 liters. GENERAL: The patient was lying in bed. He was not in acute distress. LUNGS: Decreased breathing sounds bilaterally. HEART: Regular rate and rhythm. S1, S2 within normal limits. NEUROLOGIC: He is awake, alert and oriented. LABORATORY DATA: Today, WBC 12.9, hemoglobin 11.7 and platelets 152,000. [place] [address] CONSULTATION Name: SANDOR MANSFIELD Room: [address]#: [id number] Admission: 09/22/18 Attend Phys: Jovan Mazariegos MD Discharge: Date of : 38 Report #: [id number] Creatinine 0.5. AST is 12, ALT is 37 and alkaline phosphatase 36. IMAGING: As mentioned above. ASSESSMENT AND PLAN: An 78-year-old male was admitted because of acute respiratory failure, pneumonitis and perirectal abscess, currently on antibiotics. His CT of the chest showed some progression of his pneumonia. Around 05/2017, he had a bronchial biopsy of the left upper lobe. Initial diagnosis was invasive adenocarcinoma; however, it was revised after multiple pathologists' reviews. At this moment, the patient does not have any documented active malignancy. However, I do recommend Pulmonary consultation to evaluate the need of bronchoscopy due to the worsening of his pneumonia. We will follow the patient during hospitalization. <ELECTRONICALLY SIGNED> By: Sukhjinder Singh MD 09/30/18 0854 1703 [id number] Singh MD /nt
[2018-09-30 11:35] VITALS: BP 124/70
[2018-09-30 14:45] VITALS: BP 116/61
[2018-10-01] VITALS (7 sets, daily range): BP systolic 103–156; BP diastolic 57–83
[2018-10-02] VITALS: BP 110/61
[2018-10-02 04:00] VITALS: BP 115/63
[2018-10-02 09:10] VITALS: BP 129/61
[2018-10-02] MEDS ORDERED: TRAMADOL 50 MG50 MG PO (10:50)
[2018-10-02] MEDS ORDERED: NORCO 7.5-3251 EACH PO (10:50)
[2018-10-02 11:42] VITALS: BP 100/53
[2018-10-02 16:37] VITALS: BP 109/54
[2018-10-02 20:00] VITALS: BP 113/52
[2018-10-03 00:35] VITALS: BP 103/52
[2018-10-03 03:56] VITALS: BP 120/60
[2018-10-03 08:00] VITALS: BP 122/64
[2018-10-03 12:00] VITALS: BP 129/60
[2018-10-03 16:00] VITALS: BP 130/62
[2018-10-03 20:00] VITALS: BP 116/60
[2018-10-04] VITALS: BP 100/55
[2018-10-04 04:00] VITALS: BP 116/60
[2018-10-04 08:15] VITALS: BP 124/59
[2018-10-04 12:00] VITALS: BP 108/50
[2018-10-04 16:00] VITALS: BP 105/53
[2018-10-04 19:45] VITALS: BP 134/75
[2018-10-05] VITALS: BP 118/64
[2018-10-05 04:00] VITALS: BP 120/62
[2018-10-05 08:05] VITALS: BP 111/65
[2018-10-05 16:00] VITALS: BP 108/61
[2018-10-05 20:00] VITALS: BP 106/53
[2018-10-06] VITALS: BP 120/78
[2018-10-06 04:00] VITALS: BP 130/67
[2018-10-06 08:00] VITALS: BP 121/70
[2018-10-06 12:14] LABS: ABSOLUTE BASOPHILS 0.1 thou/uL (0.0-0.2); ABSOLUTE EOSINOPHILS 0.1 thou/uL (0.0-0.7); ABSOLUTE LYMPHOCYTES 1.7 thou/uL (0.8-5.3); ABSOLUTE MONOCYTES 0.6 thou/uL (0.0-1.2); ABSOLUTE NEUTROPHILS 8.3 thou/uL (1.6-8.1); BASOPHILS 0.6 %; EOSINOPHILS 1.2 %; HEMATOCRIT 33.5 % (42.0-52.0); MCH 27.5 pg (26.0-34.0); MCHC 32.9 g/dL (28.0-37.0); MCV 83.5 fL (80.0-100.0); MONOCYTES 5.9 %; MPV 7.5 fl. (7.2-11.1); NUCLEATED RBCS 0 /100WBC; PLATELET COUNT* 217 thou/uL (150-400); POLYS 76.3 %; RBC 4.01 mil/uL (4.50-6.00); WBC 10.8 thou/uL (4.0-11.0)
[2018-10-06 12:33] LABS: ALBUMIN 2.3 g/dL (3.4-5.0); CALCIUM 9.1 mg/dL (8.5-10.1); CREATININE 0.6 mg/dL (0.6-1.3); POTASSIUM 4.4 mmol/L (3.5-5.1); TOTAL BILIRUBIN 0.4 mg/dL (<0.1-1.0); TOTAL PROTEIN 6.5 g/dL (6.4-8.2)
[2018-10-06 13:38] LABS: ESR (SEDRATE) 78 mm/hr (0-20)
[2018-10-06 16:36] VITALS: BP 103/64
[2018-10-06 20:15] VITALS: BP 115/66
[2018-10-07] VITALS: BP 101/69
[2018-10-07 03:55] VITALS: BP 108/66
[2018-10-07 07:30] VITALS: BP 123/73
[2018-10-07 18:38] VITALS: BP 132/82
[2018-10-07 20:15] VITALS: BP 112/63
[2018-10-08] VITALS: BP 117/76
[2018-10-08 04:03] VITALS: BP 131/74
[2018-10-08 07:29] VITALS: BP 126/71
[2018-10-08 15:30] VITALS: BP 103/61
[2018-10-08 20:15] VITALS: BP 111/63
[2018-10-09] VITALS: BP 100/63
[2018-10-09 04:00] VITALS: BP 109/64
[2018-10-09 07:51] VITALS: BP 114/59
[2018-10-09 11:40] VITALS: BP 100/58
[2018-10-09 16:00] VITALS: BP 109/60
[2018-10-09 20:30] VITALS: BP 103/61
[2018-10-10 00:27] VITALS: BP 107/68
[2018-10-10 04:24] LABS: CALCIUM 9.3 mg/dL (8.5-10.1); CREATININE 0.8 mg/dL (0.6-1.3); POTASSIUM 4.4 mmol/L (3.5-5.1)
[2018-10-10 05:06] VITALS: BP 113/62
[2018-10-10 08:28] VITALS: BP 138/69
[2018-10-10] MEDS ORDERED: PACERONE 200 M200 M1 PO (08:47)
[2018-10-10 12:30] VITALS: BP 118/74
[2018-10-10 16:00] VITALS: BP 122/70
[2018-10-11] VITALS (7 sets, daily range): BP systolic 84–138; BP diastolic 50–73
[2018-10-12] VITALS (7 sets, daily range): BP systolic 93–134; BP diastolic 47–74
[2018-10-13] VITALS: BP 120/60
[2018-10-13 04:00] VITALS: BP 139/82
[2018-10-13 07:40] VITALS: BP 140/67
[2018-10-13 16:51] VITALS: BP 127/64
[2018-10-13 20:25] VITALS: BP 100/66
[2018-10-14 00:59] VITALS: BP 106/63
[2018-10-14 03:42] VITALS: BP 127/77
[2018-10-14 07:34] LABS: ABSOLUTE BASOPHILS 0.1 thou/uL (0.0-0.2); ABSOLUTE EOSINOPHILS 0.2 thou/uL (0.0-0.7); ABSOLUTE LYMPHOCYTES 1.9 thou/uL (0.8-5.3); ABSOLUTE MONOCYTES 0.6 thou/uL (0.0-1.2); ABSOLUTE NEUTROPHILS 3.9 thou/uL (1.6-8.1); BASOPHILS 0.9 %; EOSINOPHILS 3.2 %; HEMATOCRIT 31.5 % (42.0-52.0); HEMOGLOBIN 10.3 gm/dL (14.0-18.0); LYMPHOCYTES 28.9 %; MCH 27.3 pg (26.0-34.0); MCHC 32.7 g/dL (28.0-37.0); MCV 83.5 fL (80.0-100.0); MONOCYTES 8.5 %; MPV 7.9 fl. (7.2-11.1); NUCLEATED RBCS 0 /100WBC; PLATELET COUNT* 269 thou/uL (150-400); POLYS 58.5 %; RBC 3.77 mil/uL (4.50-6.00); RDW-CV 18.7 % (10.5-14.5); WBC 6.7 thou/uL (4.0-11.0)
[2018-10-14 07:38] LABS: CALCIUM 9.4 mg/dL (8.5-10.1); CREATININE 0.7 mg/dL (0.6-1.3); POTASSIUM 4.7 mmol/L (3.5-5.1)
[2018-10-14 07:50] VITALS: BP 123/71
--- NOTE | 2018-10-14 09:41 | EKG ---
[place] [address] ELECTROCARDIOGRAM REPORT Name: SANDOR MANSFIELD Room: [address] ADM IN M.R.#: [id number] Admission: 09/22/18 Attend Phys: Jovan Mazariegos MD Discharge: Date of : 38 Report #: [id number] THIS REPORT FOR: //name// [facility] Test Date: 2018-10-14 Test Time: 06:14:41 Pat Name: SANDOR MANSFIELD Department: Room: [address] Gender: M Attendance Secretary: Isaias Davies : 1940 Requested By: Jovan Mazariegos Order Number: [id number] Reading MD: Imtiaz Barrett Measurements Intervals [place] Rate: 60 P: AR: 45 QRS: 36 QRSD: 101 T: -18 QT: 508 QTc: 508 Interpretive Statements Atrial-paced complexes Abnormal T, consider ischemia, anterior leads Prolonged QT interval Compared to ECG 09/22/2018 12:02:48 Prolonged QT interval now present T-wave abnormality still present Possible ischemia still present Electronically Signed On 10-14-2018 9:41:16 ENGAGEMENT MANAGER by Imtiaz Barrtet [email or web address] <ELECTRONICALLY SIGNED> By: Imtiaz Barrett MD, [facility] 10/14/18 0941 3 3 Imtiaz Barrett MD, [facility] /EPI
[2018-10-14] MEDS ORDERED: LIDOCAINE 4% K1 EACH TOP (11:16)
[2018-10-14] MEDS ORDERED: IBUPROFEN200 MG PO (11:22)
[2018-10-14 11:24] VITALS: BP 148/75
[2018-10-14] MEDS ORDERED: CIPRO500 MG PO (12:05)
[2018-10-14] MEDS ORDERED: FLAGYL500 M1 PO (12:05)
[2018-10-14 13:36] VITALS: BP 148/75
== END 2018-10-14 13:10 | DRG 871 ==
LOC: M.ERS 10:42 → M.TBA-ER 12:22 → M.2W 12:22 → M.3W 09-29 19:50
PROVIDERS: Family Medicine; Internal Medicine; Specialist; ADMIT Internal Medicine
PROC: 0XH833Z Insertion of Infusion Device into Right Upper Arm, Percutaneous Approach (ICD-10-PCS; 2018-09-22)
PROC: 0W9J30Z Drainage of Pelvic Cavity with Drainage Device, Percutaneous Approach (ICD-10-PCS; principal; 2018-10-06)
DX: A41.9 Sepsis, unspecified organism (principal); J96.01 Acute respiratory failure with hypoxia; J69.0 Pneumonitis due to inhalation of food and vomit; J44.1 Chronic obstructive pulmonary disease with (acute) exacerbation; J45.901 Unspecified asthma with (acute) exacerbation; J44.0 Chronic obstructive pulmonary disease with (acute) lower respiratory infection; K61.1 Rectal abscess; E87.2 Acidosis; K56.7 Ileus, unspecified; E44.0 Moderate protein-calorie malnutrition; I49.5 Sick sinus syndrome; B96.20 Unspecified Escherichia coli [E. coli] as the cause of diseases classified elsewhere; Z16.12 Extended spectrum beta lactamase (ESBL) resistance; N30.90 Cystitis, unspecified without hematuria; F03.90 Unspecified dementia, unspecified severity, without behavioral disturbance, psychotic disturbance, mood disturbance, and anxiety; I48.91 Unspecified atrial fibrillation; F32.9 Major depressive disorder, single episode, unspecified; Z93.3 Colostomy status; Z93.2 Ileostomy status; Z85.528 Personal history of other malignant neoplasm of kidney; Z95.0 Presence of cardiac pacemaker; Z87.891 Personal history of nicotine dependence; Z79.01 Long term (current) use of anticoagulants; Z90.5 Acquired absence of kidney; Z68.31 Body mass index [BMI] 31.0-31.9, adult; Z79.51 Long term (current) use of inhaled steroids; Z22.322 Carrier or suspected carrier of Methicillin resistant Staphylococcus aureus; Z79.899 Other long term (current) drug therapy; Z88.5 Allergy status to narcotic agent; Z88.0 Allergy status to penicillin; Z88.8 Allergy status to other drugs, medicaments and biological substances; Z88.6 Allergy status to analgesic agent; Z91.040 Latex allergy status

== ENCOUNTER → 2018-10-17 | Outpatient (CLI) | payer MEDICARE ==
[~2018-10-17] MED LIST changes: +CIPRO500 MG PO; +FLAGYL500 M1 PO; +IBUPROFEN200 MG PO; +LIDOCAINE 4% K1 EACH TOP; +ROBITUSSIN100 MG/53 PO; +TRAMADOL 50 MG50 MG PO; +UNICOMPLEX M TA1 TA1 PO
== END ==
LOC: M.CT 12:27
DX: K65.1 Peritoneal abscess (principal); N39.0 Urinary tract infection, site not specified; M47.816 Spondylosis without myelopathy or radiculopathy, lumbar region

== ENCOUNTER 2018-11-07 09:49 | Inpatient (IN) | payer MEDICARE ==
[~2018-11-07] VITALS: Ht 185.4 cm; Wt 121.0 kg
[2018-11-07 09:51] VITALS: BP 120/60
[2018-11-07] MEDS ORDERED: FOLIC ACID1 MG PO (10:13)
[2018-11-07] MEDS ORDERED: COLACE100 MG PO (10:13)
[2018-11-07] MEDS ORDERED: NORCO 7.5-3251 EACH PO (10:13)
[2018-11-07] MEDS ORDERED: ILEVRO1.7 ML OPHTHALMIC (10:14)
[2018-11-07] MEDS ORDERED: HUMALOG100 UNIT/1 SUBQ (10:14)
[2018-11-07 10:17] LABS: HEMATOCRIT 36.3 % (42.0-52.0); HEMOGLOBIN 11.6 gm/dL (14.0-18.0); MCH 26.9 pg (26.0-34.0); MCHC 32.1 g/dL (28.0-37.0); MCV 83.8 fL (80.0-100.0); MPV 9.2 fl. (7.2-11.1); NUCLEATED RBCS 0 /100WBC; PLATELET COUNT* 235 thou/uL (150-400); RBC 4.33 mil/uL (4.50-6.00); RDW-CV 18.8 % (10.5-14.5); WBC 17.1 thou/uL (4.0-11.0)
[2018-11-07 10:24] LABS: BE 2.2 mmol/L (-2 to +3); PCO2 36.7 mmHg (35.0-45.0); PO2 79.1 mmHg (75.0-100.0); pH 7.465 (7.340-7.450)
[2018-11-07 10:39] LABS: ALBUMIN 3.4 g/dL (3.4-5.0); ALKALINE PHOSPHATASE 67 U/L (46-116); ANION GAP 9 mmol/L (7-16); BUN 17 mg/dL (7-18); CALCIUM 9.1 mg/dL (8.5-10.1); CHLORIDE 101 mmol/L (98-107); CO2 30 mmol/L (21-32); GLUCOSE 131 mg/dL (70-99); MAGNESIUM 1.6 mg/dL (1.8-2.4); POTASSIUM 4.5 mmol/L (3.5-5.1); SGOT 21 U/L (15-37); SGPT 21 U/L (30-65); SODIUM 140 mmol/L (136-145); TOTAL BILIRUBIN 0.5 mg/dL (<0.1-1.0); TOTAL PROTEIN 7.5 g/dL (6.4-8.2); TROPONIN-I LEVEL <0.06 ng/mL (<0.06)
[2018-11-07 11:15] LABS: ABSOLUTE EOSINOPHILS 0.5 thou/uL (0.0-0.7); ABSOLUTE LYMPHOCYTES 0.9 thou/uL (0.8-5.3); ABSOLUTE MONOCYTES 0.7 thou/uL (0.0-1.2)
[2018-11-07 11:16] LABS: MICROCYTES 2+; PLATELET ESTIMATE ADEQUATE; POLYCHROMASIA Occasional
--- NOTE | 2018-11-07 12:24 | NUR ---
PT GIVEN A TUNA SANDWICH.
[2018-11-07 13:15] VITALS: BP 104/53
[2018-11-07 13:35] VITALS: BP 120/60
[2018-11-07 13:52] LABS: URINE BILIRUBIN NEGATIVE (Negative); URINE BLOOD 3+ (Negative); URINE CLARITY SL CLOUDY; URINE COLOR YELLOW; URINE GLUCOSE-RANDOM NEGATIVE (Negative); URINE KETONES NEGATIVE (Negative); URINE NITRITE-REFLEX NEGATIVE (Negative); URINE PROTEIN NEGATIVE (Negative); URINE SPECIFIC GRAVITY 1.025 (1.005-1.030); URINE UROBILINOGEN 0.2 E.U./dl (0.2-1.0)
[2018-11-07 13:53] LABS: URINE LEUKOCYTES-REFLEX 3+ (Negative)
[2018-11-07 13:59] LABS: BACTERIA-REFLEX 1-9 Few /HPF (None Seen); CASTS None Seen /LPF (None Seen); CRYSTALS None Seen /LPF (None Seen); MUCUS 4-6 Moderate strn/LPF (None Seen); SQUAMOUS 0-3 Few /LPF (0-3); URINE RBC 0-2 Rare /HPF (0-2); URINE WBC-REFLEX >25 Many /HPF (0-5)
[2018-11-07 16:00] VITALS: BP 110/48
--- NOTE | 2018-11-07 16:44 | EKG ---
[place] [address] ELECTROCARDIOGRAM REPORT Name: SANDOR MANSFIELD Room: [address] ADM IN [facility].#: [id number] Admission: 11/07/18 Attend Phys: Ricardo Reddy MD Discharge: Date of : 38 Report #: [id number] THIS REPORT FOR: //name// [facility] ED Test Date: 2018-11-07 Test Time: 09:57:53 Pat Name: SANDOR SUMMERSMONS Department: Room: [facility] Gender: M Chartered Accountant: : 1940 Requested By: Cary Kamara Order Number: [id number] MD: Imtiaz Barrett Measurements Intervals [place] Rate: 79 P: [place]: QRS: 48 QRSD: 89 T: 57 QT: 499 QTc: 573 Interpretive Statements Atrial fibrillation Prolonged QT interval Compared to ECG 10/14/2018 06:14:41 T-wave abnormality no longer present Possible ischemia no longer present Electronically Signed On 11-07-2018 16:44:43 CDT by Imtiaz Barrett [email or web address] <ELECTRONICALLY SIGNED> By: Imtiaz Barrett MD, [facility] 11/07/18 1644 [id number] Imtiaz Barrett MD, [facility] /EPI
--- NOTE | 2018-11-07 18:47 | NUR ---
RECEIVED REPORT FROM ER NURSE TAMMIE. PT ARRIVED TO TELE FLOOR AROUND 1315, ASSUMED CARE. PT A&OX4, VSS, BP'S A BIT SOFT BUT HAVE SINCE COME UP WITH FLUIDS. PT ORIENTED TO ROOM, BED AND CALL LIGHT. ADMISSION ASSESSMENT, HISTORY AND EDUCATION COMPLETED CHARTED. IV TO RIGHT FA INTACT. PT REPORTED NECK AND BACK PAIN THAT WAS MANAGED WITH PO PAIN MEDICATION WITH PARTIAL RELIEF. PT TOLERATING DIET. SUPRAPUBIC BOBBY IN PLACE AND DRAINING WELL. COLOSTOMY BAG IN PLACE. PT BEING TURNED Q2HRS FOR COMFORT. ORDER FOR DNR PUT IN BY DR MANUEL, PT WISHING TO BE A FULL CODE (BUT NO MACHINES) - DOCTOR MESSAGED TO CHANGE ORDER, AWAITING RESPONSE. PT CURRENTLY RESTING IN BED WATCHING TV. CALL LIGHT IS WITHIN REACH. HOURLY ROUNDING PERFORMED. FALL PRECAUTIONS IN PLACE.
[2018-11-07 20:00] VITALS: BP 110/45
[2018-11-08] VITALS: BP 99/52
[2018-11-08 03:54] VITALS: BP 111/67
[2018-11-08 04:55] LABS: ABSOLUTE LYMPHOCYTES 0.9 thou/uL (0.8-5.3); ABSOLUTE MONOCYTES 0.6 thou/uL (0.0-1.2); ABSOLUTE NEUTROPHILS 8.6 thou/uL (1.6-8.1); BASOPHILS 0.4 %; HEMATOCRIT 30.9 % (42.0-52.0); HEMOGLOBIN 10.1 gm/dL (14.0-18.0); LYMPHOCYTES 9.3 %; MCH 27.3 pg (26.0-34.0); MCHC 32.6 g/dL (28.0-37.0); MCV 83.8 fL (80.0-100.0); MONOCYTES 5.7 %; MPV 8.1 fl. (7.2-11.1); NUCLEATED RBCS 0 /100WBC; PLATELET COUNT* 180 thou/uL (150-400); POLYS 84.6 %; RBC 3.69 mil/uL (4.50-6.00); RDW-CV 18.6 % (10.5-14.5); WBC 10.1 thou/uL (4.0-11.0)
--- NOTE | 2018-11-08 05:02 | NUR ---
ASSUMED PT CARE AT APPROX 1930. PT IS AWAKE AND ORIENTED X4. VSS ON 4L/NC. TRACING SR ON TELE. RE-ASSESSMENT DONE AND CHARTED. COLOSTOMY INTACT WITH SOFT FORMED STOOLS NOTED. SUPRAPUBIC CATHETER INTACT AND PATENT. REPOSITIONED EVERY 2HOURS. NO DESATURATIONS NOTED. WITH COMPLAINTS OF GENERALIZED BODY PAIN PARTIALLY RELIEVED BY HYDROCODONE GIVEN PER MAR. CALL LIGHT WITHIN REACH. HOURLY ROUNDING DONE FOR PT SAFETY.
[2018-11-08 05:16] LABS: CALCIUM 8.8 mg/dL (8.5-10.1); CREATININE 0.9 mg/dL (0.6-1.3); MAGNESIUM 2.1 mg/dL (1.8-2.4); POTASSIUM 4.8 mmol/L (3.5-5.1)
[2018-11-08 09:30] VITALS: BP 100/58
--- NOTE | 2018-11-08 11:34 | NUR ---
MET WITH PT TO DISCUSS HOME SITUATIN/DC PLANNING. PT KNOWN TO CM FROM [facility]. HE IS LTC RESIDENT AT [facility]. USES POWER CHAIR AND HAS CHRONIC WOUND. PLAN IS FOR PT TO RETURN TO [place] AT [place]. CM TO FOLLOW AND ASSIST MELISSA NINA [facility]- [phone]
[2018-11-08 12:36] VITALS: BP 111/61
[2018-11-08 16:22] VITALS: BP 120/54
--- NOTE | 2018-11-08 17:52 | NUR ---
PT A/O. TELE TRACKING NSR WITH BBB AND ALL VSS ON 3L. C/O GENERALIZED PAIN-MEDICATED PER EMAR. Q2 TURNS. SUP PUB AND OSTOMY WNL. EDUCATED ON SAFETY AND PLAN OF CARE. WILL CONTINUE TO MONITOR
[2018-11-08 20:00] VITALS: BP 103/61
[2018-11-09] VITALS: BP 121/63
[2018-11-09 04:00] VITALS: BP 115/62
--- NOTE | 2018-11-09 06:24 | NUR ---
ASSUMED PT CARE AT APPROX 1930. PT IS AWAKE AND ORIENTED X4. VSS ON 2L/NC. TRACING SR ON TELE. REPOSITIONED EVERY 2HRS. RE-ASSESSMENT DONE AND CHARTED. COMPLAINED OF BACK PAIN PARTIALLY RELIEVED BY HYDROCODONE GIVEN PER MAR. CALL LIGHT WITHIN REACH. HOURLY ROUNDING DONE FOR PT SAFETY.
[2018-11-09 10:27] VITALS: BP 120/60
[2018-11-09 12:00] VITALS: BP 118/59
[2018-11-09 16:00] VITALS: BP 104/55
--- NOTE | 2018-11-09 17:50 | NUR ---
PATIENT IS ALERT AND ORIENTED TODAY, REFUSING TO TURN EVEN THOUGH COMPLAINING OF SOME PAIN, ENCOURAGED TURN BUT STILL REFUSES. VITAL SIGNS STABLE ON 4 LITERS OF OXYGEN. NORMAL SINUS RHYTHYM ON THE MONITOR. IV IN RIGHT FOREARM WORKS WELL FOR IV ANTIOBIOTICS. PATIENT IS ON A LOW AIR LOSS MATTRESS. CALL LIGHT IS IN REACH, WILL CONTINUE TO MONITOR.
[2018-11-09 20:00] VITALS: BP 101/58
[2018-11-10] VITALS (7 sets, daily range): BP systolic 112–140; BP diastolic 58–72
--- NOTE | 2018-11-10 05:53 | NUR ---
ASSUMED PT CARE AT APPROX 1930. PT IS AWAKE AND ORIENTED X4. SR ON TELE. VSS ON 3L OF O2 PER NC. RE-ASSESSMENT DONE AND CHARTED. POSITION CHANGES DONE EVERY 2HRS. COLOSTOMY INTACT WITH SEMIFORMED OUTPUT. SUPRA-PUBIC CATHETER INTACT. COMPLAINED OF GENERALIZED BODY PAIN PARTIALLY RELIEVED BY HYDROCODONE GIVEN PER OCT. CALL LIGHT WITHIN REACH. HOURLY ROUNDING DONE FOR PT SAFETY.
--- NOTE | 2018-11-10 07:45 | NUR ---
ASSUMED CARE OF PT ASSESSED AND DOCUMENTED. PT IS ON CARDIAC MONITER TRACING PACED SR HR 66. HE IS A&O. VSS WNL. PT HAS A BOBBY WITH CLEAR YELLOW URINE. HE HAS A COLOSTOMY BAG. PT HAS A RED BOTTOM AND NOTED EXCORIATION IN HIS GROIN AREA. PT IS AFEBRILE. 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 BED IS IN LOW POSITION CALL LIGHT IS IN REACH. PT STATED HE WAS UNHAPPY WITH HIS CARE YESTERDAY. HE ALSO STATED HIS GOAL WAS TO GO HOME AND . PT STATEDE THIS ON A PRIOR ADMISSION TO THIS HOSPITAL. HE STATES HIS CHILDREN WANT NOTHING TO DO WITH HIM AND NO ONE CARES. ASKED PT IF HE HAD MADE ANY FRIENDS AT THE HOME HE WAS IN AND HE SAID A COUPLE. .
--- NOTE | 2018-11-10 11:27 | NUR ---
WOUND CARE NOTE: CONSULT RECEIVED FOR INTERNAL RECTUM WOUND. PATIENT WELL KNOWN TO ME FROM [facility]. PRESENTS WITH A CHRONIC SURGICAL TYPE WOUND TO THE PERINEUM. SITE HAD LARGE AMOUNT OF CREAM/OINTMENT TO IT. ATTEMPTED TO CLEANSE OFF TO BE ABLE TO HAVE A BETTER VISUALIZATION OF THE WOUND, BUT PATIENT STATED HE NEEDED OXYGEN AND TO LAY BACK. PATIENT ALLOWED TO LAY BACK IN A SEMI-FOLWERS POSITION TO REGAIN HIS BREATH. AFTER APPROXIMATELY 5 MINUTES, HE AGAIN ALLOWED US TO ROLL HIM SO I COULD INSPECT THE SITE. CREAM DIFFICULT TO COMPLETELY REMOVE, PATIENT ALSO AGITATED THAT HE HAD SIDE LAY. PHOTO TAKEN, HOWEVER DIFFICULT TO SEE WOUNDED AREA DUE TO LIGHTING AND LOCATION OF WOUND. WOUND IS APPROXIMATELY 1X0.5X1, HOWEVER, PATIENT WAS UNCONFORTABLE WHEN ATTEMPTING TO DISTINGUISH THE DEPTH OF THE WOUND AND WOULD NOT ALLOW ME TO PROBE FURTHER. APPEARS THAT THERE IS A SMALL AMOUNT OF SEROSANGUINEOUS DRAINAGE. UNABLE TO SEE INTO WOUND BED DUE TO LOCATION OF THE WOUND. ALSO ATTEMPTED TO PACK WOUND WITH AQUACEL AG, BUT PATIENT WAS ADEMENT THAT WE DON'T PUT 'PLUGS' INTO THE WOUND ANYMORE. EDUCATED PATIENT THAT WE WERE NOT GOING TO PLACE THE WOUND VAC, IN THE PAST CALLS THE WOUND VAC A PLUG, PATIENT STILL ADAMENT THAT WE DON'T PUT PLUGS IN THE WOUND ANYMORE. PATIENT UNABLE TO TELL ME WHAT HIS NORMAL DRESSING IS FOR THE WOUND AT THE FACILITY. APPLIED AQACEL AG OVER THE WOUND OPENING. PATIENT ON LOW AIR LOSS MATTRESS, HOWEVER HAS TO SIT >30 DEGREES IN ORDER TO CATCH HIS BREATH. PATIENT STATES IT FEELS LIKE KNIVES IN HIS CHEST. PATIENT WAS MOVED UP IN BED. NEW CHUX AND DRAWSHEET PLACED UNDER PATIENT. RECOMMEND FOLLOW UP IN WOUND CENTER WITH DR. CORNELIUS 11/17/18 0900 TURN Q2 HOURS-KEEP OFF WOUND ENCOURAGE GOOD NUTRTION/HYDRATION DAILY DRESSING CHANGES LIMIT LAYERS OF LINEN UNDER PATIENT LIMIT HOB <30 DEGREES.
--- NOTE | 2018-11-10 14:25 | NUR ---
CONTINUE TO FOLLOW. FAXED UPDATED CLINICAL TO [facility]. PLAN IS FOR PT TO RETURN THERE AT [place].
--- NOTE | 2018-11-10 18:27 | NUR ---
PT HAS RESTED IN HIS ROOM WATCHING TV. PICTURES TAKEN OF PTS ANUS, EXCORIATED GROIN, AND SCROTUM. CLEASNED AND APPLIED NYSTATIN TO GROIN. PT HAS CONT ON 2HOUR TURN AND REPOSITIONING. EDUCATION GIVEN ON DEMAND. HOURLY ROUNDING CONT.
[2018-11-11] VITALS: BP 110/71
--- NOTE | 2018-11-11 03:00 | NUR ---
RECIEVED REPORT AND ASSUMED CARE AT 1900. AREA FIELD PERSON IN PLACE. VITAL SIGNS ARE STABLE. PT HAS PAIN ALL OVER AND PRN MEDS GIVEN ORDERED. [facility]. ASSESSMENT COMPLETED, DISCUSSED PLAN OF CARE, PT UNDERSTANDS. BED LOCKED, ALARM ON AND CALL LIGHT WITHIN REACH. FALL PRECAUTIONS IN PLACE. HOURLY ROUNDING DONE AND ALL NEEDS MET. NURSING WILL CONTINUE TO MONITOR.
[2018-11-11 04:00] VITALS: BP 132/78
[2018-11-11 07:40] VITALS: BP 145/82
--- NOTE | 2018-11-11 11:42 | NUR ---
attempted to change dressing to coccyx, patient refused dressing change. education given to pt for need, pt refused at this time. will continue to monitor.
[2018-11-11 12:33] VITALS: BP 128/77
--- NOTE | 2018-11-11 12:48 | NUR ---
Nutrition: Pt assessed for wound risk. Has been seen by Wound RN. H/o mild COPD, aspiration PNA, colostomy, afib, non-healing sacral surgical wound. CHO controlled diet. Eating 100% of meals. RX: B12, folic acid, MVI, D3, insulin. Wt: 222#. BG 121, albumin 3.4. RD ordered Chris bid to aid in wound healing. Increased nutrient needs R/T wound healing AEB non-helaing wound present. Chris bid and continue other MVI and supplements to aid in wound healing. Mild risk.
--- NOTE | 2018-11-11 15:18 | NUR ---
PT HAS REFUSED P.T. FOR THREE CONSECUTIVE DAYS. PT VEHEMENTLY REFUSES P.T. AND STATES THAT HE WILL NOT PARTICIPATE. PT IS THEREFORE DC'ED FROM P.T. JAIME SAUL, MPT
[2018-11-11 17:10] VITALS: BP 135/79
--- NOTE | 2018-11-11 17:33 | NUR ---
PT REMAINED ALERT AND ORIENTED. PT Q2 TURNED. 4 LITERS O2 BY NASAL CANNULA. PT HAD A BATH TODAY. PT REFUSED DRESSING CHANGE. PT RESTING IN BED. FALL RISK PRECAUTIONS IN PLACE. HOURLY ROUNDING COMPLETED. CONTACT PRECAUTIONS IN PLACE. LATEX ALLERGY PRECAUTIONS IN PLACE. WILL CONTINUE TO MONITOR.
[2018-11-11 20:00] VITALS: BP 110/68
[2018-11-12] VITALS (7 sets, daily range): BP systolic 97–140; BP diastolic 58–80
--- NOTE | 2018-11-12 03:49 | NUR ---
RECIEVED REPORT AND ASSUMED CARE AT 1900. ADMINISTRATIVE SALES ASSISTANT IN PLACE. VITAL SIGNS STABLE. PT HAS GENERALIZED PAIN 10/10 AND PRN MEDS GIVEN ORDERED. PT IS BEDREST. ASSESSMENT COMPLETED, DISCUSSED PLAN OF CARE PT UNDERSTANDS. BED LOCKED, ALARM ON AND CALL LIGHT WITHIN REACH. FALL PRECAUTIONS IN PLACE. HOURLY ROUNDING DONE AND ALL NEEDS MET NURSING WILL CONTINUE TO MONITOR.
--- NOTE | 2018-11-12 08:00 | NUR ---
ASSUMED CARE OF PT ASSESSED AND DOCUMENTED. PT IS ON CARDIAC MONITER TRACING SR HR 65. HE IS A&O. VSS WNL. PT IS AFEBRILE. PT IS ON 4L OF 02 WITH NOTED WHEEZING. HIS GROIN IS BETTER THAN IT WAS 2 DAYS AGO SO NYSTATIN IS EFFECTIVE. BOTTOM IS STILL RED. PT CONT ON ISO FOR HX OF MRSA. BED IS IN LOW POSITION CALL LIGHT IS IN REACH. WM.
--- NOTE | 2018-11-12 09:15 | NUR ---
PT TECH CAME FOR ME STATEING SHE THOUGHT PT WAS CHOKEING. PTS BREATHING WAS LABORED AND RESPIRATIONS WERE ELEVATED. DR ORDERED CXR AND ABGS. STAYED WITH PT. HE STATED HE DID NOT WANT ME TO LEAVE HE WAS AFRAID. STAYED WITH PT.
[2018-11-12 10:45] LABS: BE 7.8 mmol/L (-2 to +3); pH 7.396 (7.340-7.450)
[2018-11-12 10:48] LABS: PCO2 57.6 mmHg (35.0-45.0); PO2 58.5 mmHg (75.0-100.0)
[2018-11-12 11:07] LABS: ABSOLUTE BASOPHILS 0.1 thou/uL (0.0-0.2); ABSOLUTE EOSINOPHILS 0.1 thou/uL (0.0-0.7); ABSOLUTE LYMPHOCYTES 2.3 thou/uL (0.8-5.3); ABSOLUTE MONOCYTES 0.9 thou/uL (0.0-1.2); ABSOLUTE NEUTROPHILS 7.6 thou/uL (1.6-8.1); BASOPHILS 1.2 %; EOSINOPHILS 0.6 %; HEMATOCRIT 38.9 % (42.0-52.0); LYMPHOCYTES 20.8 %; MCH 27.5 pg (26.0-34.0); MCHC 33.3 g/dL (28.0-37.0); MCV 82.5 fL (80.0-100.0); MPV 7.5 fl. (7.2-11.1); NUCLEATED RBCS 0 /100WBC; PLATELET COUNT* 284 thou/uL (150-400); POLYS 69.4 %; RBC 4.72 mil/uL (4.50-6.00); RDW-CV 18.1 % (10.5-14.5); WBC 10.9 thou/uL (4.0-11.0)
[2018-11-12 11:20] LABS: ALBUMIN 3.3 g/dL (3.4-5.0); CALCIUM 10.1 mg/dL (8.5-10.1); CREATININE 0.8 mg/dL (0.6-1.3); POTASSIUM 3.7 mmol/L (3.5-5.1); TOTAL BILIRUBIN 0.4 mg/dL (<0.1-1.0); TOTAL PROTEIN 8.4 g/dL (6.4-8.2)
--- NOTE | 2018-11-12 13:19 | CON ---
[address] [address] CONSULTATION Name: SANDOR MANSFIELD Room: [address] IN .R.#: [id number] Admission: 11/07/18 Attend Phys: Ricardo Reddy MD Discharge: Date of : 36 Report #: [id number] THIS REPORT FOR: //name// CC: Charles Reddy DATE OF SERVICE: 11/11/2018 ATTENDING PHYSICIAN: Dr. Reddy. REASON FOR EVALUATION: Complicated urinary tract infection due to multiple-resistant Escherichia coli, this is recurrent. Also, has pneumonitis. HISTORY OF PRESENT ILLNESS: Chart reviewed, patient examined. This is an 78-year-old well known to myself, has paraplegia and previous history of distal colon resections with a chronic cavity, and also has had recurrent urinary tract infections. He was also hospitalized in September of this year for an extended period. He returned on the with complaints of dyspnea. He was found to have borderline saturations and hypoxemia. He does have ongoing issues with discomfort in his chest as had been evident during his last hospitalization in spite of the imaging evaluation in order to find the etiology. He does have persistent burning in his perineal area as well. He states his breathing is still marginal. He is on supplemental oxygen. He is not aware of any fevers. He has had some intermittent nausea and his appetite is somewhat variable. Due to his history, there is certainly concern about an infectious etiology, both of pulmonary as well as urinary tract source. He was started on empiric therapy with cefepime. ALLERGIES: LISTED TO, BAND-AIDS PENICILLINS, CODEINE, ASPIRIN, QUININE, LATEX. CURRENT MEDICATIONS: Include ____, insulin, loratadine, duloxetine, folic acid, amiodarone, cyanocobalamin, finasteride, cholecalciferol, pantoprazole, olanzapine, oxybutynin, rivaroxaban, prednisone, cefepime, metoclopramide, p.r.n. analgesics, and albuterol. PAST MEDICAL AND SURGICAL HISTORY: Extensive, including COPD, atrial fibrillation, and renal cell carcinoma. Has a colostomy, has a suprapubic catheter, and diabetes mellitus. Has a history of paraplegia and previous rectal resection. SOCIAL HISTORY: Former smoker. Past use of ethanol. No illicit drug use. FAMILY HISTORY: Noncontributory. REVIEW OF SYSTEMS: Otherwise, unremarkable as the exception noted above in [place] [address] CONSULTATION Name: SANDOR MANSFIELD Room: [address]#: [id number] Admission: 11/07/18 Attend Phys: Ricardo Reddy MD Discharge: Date of : 36 Report #: [id number] PHYSICAL EXAMINATION: GENERAL: Pleasant, alert, cooperative, animated. He recognizes me. He does appear to be in moderate respiratory distress with difficulty completing sentences. VITAL SIGNS: Temperature 97.5, pulse 80, respirations 18, blood pressure 145/82. SKIN: Warm and somewhat pale, and is dry. HEENT: Normocephalic. Extraocular muscles intact. NECK: Supple. LUNGS: Few scattered coarse breath sounds. HEART: Regular, soft systolic murmur. ABDOMEN: Soft. He is obese, mildly distended. SKIN: He has an ostomy in place. Suprapubic catheter in. GENITOURINARY AND RECTAL: Deferred. LABORATORY DATA: Urine culture with Gram-negative rods. Blood cultures are sterile thus far. CBC: White count of 10.1, H and H 10.1 and 30.9, platelets of 180. Electrolytes: Sodium 143, potassium 4.8, chloride 106, bicarbonate 31, anion gap 6, BUN and creatinine 17 and 0.9, glucose of 142. CT of the pelvis showed soft tissue thickening and phlegmon in the midline pelvic floor at the site of prior abscess, no definite drainable abscess noted. Previous cultures were noted back in August and September, had Escherichia coli urinary tract, multiple resistant, susceptible to amikacin; intermediate to cefepime; sensitive to ceftazidime, imipenem, ertapenem, and meropenem; sensitive to tigecycline. ASSESSMENT AND PLAN: Complicated urinary tract infection, likely due to multiple resistant organism. We will adjust therapy to carbapenem at this point and that should give us reasonable pulmonary coverage as well. We will collect a sputum sample, states he can expectorate. Continue wound care as prescribed. We will monitor expectantly. <ELECTRONICALLY SIGNED> By: Marvin Amaro MD 11/12/18 1319 [id number] [id number] Amaro MD /nt
--- NOTE | 2018-11-12 13:29 | NUR ---
PAGED AND SENT YOU CALL MD TO DR RIOS. PT STATES HE CANNOT LAY DOWN FOR A CT UNLESS HE IS KNOCKED OUT.
--- NOTE | 2018-11-12 13:38 | NUR ---
PT IS RESTING IN HIS ROOM. HE FELL ASLEEP I WAS CHARTING. RESPIRATIONS NOW DOWN TO 24. HE IS ASLEEP WITH MOUTH OPEN.
--- NOTE | 2018-11-12 13:40 | NUR ---
CONTINUE TO FOLLOW, MET WITH PT AND DISCUSSED WITH DR RIOS. PT DENIES WANTING ANYONE CALLED OR HAVING A CONTACT NAMED OTHER THAN THE '[facility]' WHICH IS [facility]. HE HAS NO DPOA. SPOKE WITH MICHELINE/MELISSA, PT HAS NO ONE LISTED THERE EITHER. WILL FOLLOW
--- NOTE | 2018-11-12 13:41 | NUR ---
DR RIOS GOING IN TO TALK WITH PT ABOUT CT ORDERED.
--- NOTE | 2018-11-12 14:21 | NUR ---
I HAVE REVIEWED THE STUDENT'S CHARTING.
--- NOTE | 2018-11-12 16:27 | NUR ---
ot left a note re pt 's refusal of ot so she is d/c'ing from case load.
--- NOTE | 2018-11-12 16:36 | NUR ---
PT. DECLINES O.T. AGAIN FOR THE 4TH TIME SINCE 11/08. WILL DISCHARGE PT. FROM O.T. [facility] AT THIS TIME. PT. IS IN AGREEMENT TO NOT PARTICIPATE IN O.T. SERVICES.
--- NOTE | 2018-11-12 17:39 | NUR ---
PT HAS RESTED IN HIS ROOM THIS SHIFT. HE CONT TO BE TURNED AND REPO.PT HAS BEEN ANXIOUS THIS SHIFT AND STATED HE COULD NOT LAY FLAT FOR THE CT ORDERED. PT IS WEARING A VENTI MASK AND THIS HAS BEEN EFFECTIVE. EDUCATION GIVEN ON DEMAND. HOURLY ROUNDING CONT.
--- NOTE | 2018-11-12 18:21 | NUR ---
FLUSHED PTS CATH PER HIS REQUEST.
[2018-11-13] VITALS: BP 115/73
--- NOTE | 2018-11-13 03:03 | NUR ---
RECIEVED REPORT AND ASSUMED CARE AT 1900. LUSTERER IN PLACE. RESP ELEVATED, OTHER THAN THAT VITAL SIGNS STABLE. PT IS BED REST UP WITH MECH LIFT. PT HAS ALL OVER PAIN AND PRN PAIN MEDS GIVEN ORDERED. ASSESSMENT COMPLETED DISCUSSED PLAN OF CARE, PT UNDERSTANDS. BED LOCKED ALARM ON AND CALL LIGHT WITHIN REACH. FALL PRECAUTIONS IN PLACE. HOURLY ROUNDING IN DONE AND ALL NEED MET. NURSING WILL CONTINUE TO MONITOR.
[2018-11-13 04:00] VITALS: BP 149/91
[2018-11-13 08:00] VITALS: BP 144/81
--- NOTE | 2018-11-13 08:00 | NUR ---
AM ASSESSMENT COMPLETE, DEFER TO COMPUTER CHARTING. ALERT ORIENTED, ANXIOUS AND IRRITABLE - REASSURANCE GIVEN. SOA OF BREATH NOTED WITH ACTIVITY IN BED AND TALKING - USING PURSED LIP BREATHING TECH TO ASSIST RECOVERING FROM SOA. ATTEMPTED TO TURN PATIENT TO EXAMINE BOTTOM, BACK AEAR - ONLY ABLE TO TURN THEN HAD TO TURN BACK REFUSING - STATING UNABLE TO BREATH - HOB ELEVATED. DENIES PAIN, DIZZINESS OR ANY DISCOMFORT - REPORTING NOT FEELING WELL THIS AM. WILL CONTINUE TO MONITOR.
[2018-11-13 12:23] VITALS: BP 145/83
[2018-11-13 16:05] VITALS: BP 136/83
--- NOTE | 2018-11-13 16:43 | NUR ---
PATIENT STATING WANTING TO TRY TO HAVE CT TEST - WANTS TO HAVE IN AM. CALL PLACED TO CT NOTIFIED PATIENT AGREES TO HAVE TEST IN AM.
--- NOTE | 2018-11-13 16:44 | NUR ---
PROFESSOR OF ANTHROPOLOGY TRACKING WITH NO CHANGE IN RHYTHM. 02 REMAINS ON 5L PER NC, MORE COOPERATIVE LATER IN SHIFT. BUT, PATIENT STILL REFUSING TO TURN TO SIDE SO NURSING CAN LOOK AT BOTTOM - DID ALLOW STAFF TO PIVOT POSITION WITH PILLOW WEDGE LATER IN SHIFT. CONTINUES TO BE SOA WITH ACITVITY IN BED AND TALKING. CALL LIGHT WITHIN REACH. WILL CONTINUE WITH PLAN OF CARE.
[2018-11-13 19:50] VITALS: BP 138/84
[2018-11-14] VITALS: BP 131/83
[2018-11-14 04:00] VITALS: BP 143/85
--- NOTE | 2018-11-14 05:29 | NUR ---
VITALS WNL. SEE MAR. SEE CHARTING. FALL PRECAUTIONS IN PLACE. HOURLY ROUNDING FOR SAFETY.
[2018-11-14 08:10] VITALS: BP 166/58
--- NOTE | 2018-11-14 09:45 | NUR ---
REC'D REPORT FROM NOC RN, ASSUMED CARE OF PT APPROX 0730. A&OX4, ABLE TO COMMUNICATE NEEDS TO STAFF EFFECTIVELY. ASSESSMENT COMPLETED, VS OBTAINED. CHEMIC MANGLER IN PLACE, SR. O2 SATS 96% ON 5L O2. SUPRAPUBIC CATHETER DRAINING CLR, YELLOW URINE, COLOSTOMY BAG WITH BROWN FECAL MATTER IN BAG. PATIENT IS BEDREST, WC BOUND, LIFT DEVICE REQUIRED FOR TRANSFER TO CHAIR. CALL LIGHT WITHIN REACH. HOURLY ROUNDING FOR SAFETY AND PT NEEDS.
--- NOTE | 2018-11-14 11:30 | NUR ---
ORDERS NOTED FOR DC BACK TO [facility]. PT IN AGREEMENT. CALL TO MICHELINE/MELISSA, SHE ARRANGED FOR W/C VAN AT 2PM. ORDERS FAXED TO HER AND RN HAS NUMBER TO CALL FOR REPORT. CHART COPIED. PT DOESN'T HAVE ANY EMERGENCY CONTACTS TO NOTIFY
[2018-11-14] MEDS ORDERED: CEFDINIR300 MG PO (11:33)
[2018-11-14 12:01] VITALS: BP 149/86
[2018-11-14] MEDS ORDERED: NYSTATIN 100,0015 G1 TOP (12:03)
[2018-11-14] MEDS ORDERED: PREDNISONE 10 M10 MG PO (12:04)
[2018-11-14] MEDS ORDERED: TESSALON PERLE100 MG PO (12:05)
[2018-11-14] MEDS ORDERED: TUMS PO (12:06)
[2018-11-14] MEDS ORDERED: XALATAN2.5 M1 OPHTHALMIC (12:10)
[2018-11-14] MEDS ORDERED: OXYGEN MISCELL (12:23)
== END 2018-11-14 14:05 | DRG 177 ==
LOC: M.ERS 09:49 → M.2W 12:11 → M.TBA-ER 12:11 → M.2W 13:47
PROVIDERS: Internal Medicine; Personal Emergency Response Attendant; ADMIT Family Medicine
DX: J69.0 Pneumonitis due to inhalation of food and vomit (principal); J96.21 Acute and chronic respiratory failure with hypoxia; J44.1 Chronic obstructive pulmonary disease with (acute) exacerbation; E87.2 Acidosis; E44.1 Mild protein-calorie malnutrition; N39.0 Urinary tract infection, site not specified; D68.69 Other thrombophilia; Z66 Do not resuscitate; F32.9 Major depressive disorder, single episode, unspecified; I48.2 Chronic atrial fibrillation; B96.20 Unspecified Escherichia coli [E. coli] as the cause of diseases classified elsewhere; G31.84 Mild cognitive impairment of uncertain or unknown etiology; Z93.3 Colostomy status; Z68.35 Body mass index [BMI] 35.0-35.9, adult; Z85.528 Personal history of other malignant neoplasm of kidney; Z87.891 Personal history of nicotine dependence; Z79.4 Long term (current) use of insulin; Z95.0 Presence of cardiac pacemaker; Z79.899 Other long term (current) drug therapy; Z88.5 Allergy status to narcotic agent; Z88.0 Allergy status to penicillin; Z88.8 Allergy status to other drugs, medicaments and biological substances; Z88.6 Allergy status to analgesic agent; Z91.040 Latex allergy status

== ENCOUNTER 2019-05-27 15:12 | Inpatient (IN) | payer MEDICARE, MEDICAID ==
[~2019-05-27] VITALS: Ht 185.4 cm; Wt 126.1 kg
[~2019-05-27 15:12] MED LIST changes: +CEFDINIR300 MG PO; +COLACE100 MG PO; +HUMALOG100 UNIT/1 SUBQ; +ILEVRO1.7 ML OPHTHALMIC; +NYSTATIN 100,0015 G1 TOP; +OXYGEN MISCELL; +PREDNISONE 10 M10 MG PO; +TESSALON PERLE100 MG PO; +TUMS PO; +XALATAN2.5 M1 OPHTHALMIC
[2019-05-27 15:18] VITALS: BP 147/83
[2019-05-27] MEDS ORDERED: AMIODARONE HCL400 MG PO (15:27)
[2019-05-27] MEDS ORDERED: COLACE100 MG PO (15:28)
[2019-05-27] MEDS ORDERED: CARVEDILOL12.5 MG PO (15:29)
[2019-05-27] MEDS ORDERED: NEURONTIN 400M400 M2 PO (15:30)
[2019-05-27] MEDS ORDERED: LEXAPRO 10 MG T10 M1 PO (15:32)
[2019-05-27] MEDS ORDERED: TOPROL XL25 MG PO (15:34)
[2019-05-27 16:03] LABS: ABSOLUTE BASOPHILS 0.1 thou/uL (0.0-0.2); ABSOLUTE EOSINOPHILS 0.8 thou/uL (0.0-0.7); ABSOLUTE LYMPHOCYTES 2.7 thou/uL (0.8-5.3); ABSOLUTE MONOCYTES 0.8 thou/uL (0.0-1.2); ABSOLUTE NEUTROPHILS 8.7 thou/uL (1.6-8.1); BASOPHILS 0.8 %; EOSINOPHILS 6.3 %; HEMOGLOBIN 11.4 gm/dL (14.0-18.0); LYMPHOCYTES 20.4 %; MCH 27.8 pg (26.0-34.0); MCHC 32.6 g/dL (28.0-37.0); MCV 85.2 fL (80.0-100.0); MPV 8.2 fl. (7.2-11.1); NUCLEATED RBCS 0 /100WBC; PLATELET COUNT* 248 thou/uL (150-400); POLYS 66.5 %; RBC 4.11 mil/uL (4.50-6.00); RDW-CV 16.9 % (10.5-14.5); WBC 13.1 thou/uL (4.0-11.0)
[2019-05-27 16:17] LABS: CALCIUM 9.3 mg/dL (8.5-10.1); CREATININE 1.1 mg/dL (0.6-1.3); INR 1.1; POTASSIUM 4.6 mmol/L (3.5-5.1); PROTIME 11.2 Seconds (9.20-11.50)
[2019-05-27 16:29] LABS: ALBUMIN 3.1 g/dL (3.4-5.0); TOTAL BILIRUBIN 0.2 mg/dL (<0.1-1.0)
[2019-05-27 19:30] VITALS: BP 133/75
[2019-05-27 20:00] VITALS: BP 124/58
[2019-05-27] MEDS ORDERED: ALPHAGAN P5 ML OPHTHALMIC (20:30)
[2019-05-27] MEDS ORDERED: PACERONE200 MG PO (20:36)
[2019-05-27] MEDS ORDERED: ATROPINE SULFATE2 ML PO (20:38)
[2019-05-27] MEDS ORDERED: MENTHOL-ZINC O113 GM TOP (20:44)
[2019-05-27] MEDS ORDERED: CYMBALTA30 MG PO (20:52)
[2019-05-27] MEDS ORDERED: EUCERIN CREME57 GM TOP (20:53)
[2019-05-27] MEDS ORDERED: FENTANYL PATCH75 MCG TRANSDERM (20:55)
[2019-05-27] MEDS ORDERED: MUCUS ER600 MG PO (20:57)
[2019-05-27] MEDS ORDERED: LORATIDINE 10 M10 M1 PO (20:59)
[2019-05-27] MEDS ORDERED: LORAZEPAM I2 MG/1 ML PO (21:01)
[2019-05-27] MEDS ORDERED: LUMIGAN2.5 M1 OPHTHALMIC (21:06)
[2019-05-27] MEDS ORDERED: MSL20MG/ML PO (21:09)
[2019-05-27] MEDS ORDERED: OCEAN104 ML NASAL (21:11)
[2019-05-27] MEDS ORDERED: OLANZAPINE ODT5 MG PO (21:21)
[2019-05-27] MEDS ORDERED: ROBITUSSIN100 MG/53 PO (21:24)
[2019-05-27] MEDS ORDERED: TESSALON PERLE100 MG PO (21:26)
[2019-05-27] MEDS ORDERED: XARELTO20 MG PO (22:04)
[2019-05-28] VITALS: BP 138/61
[2019-05-28 04:00] VITALS: BP 117/62
[2019-05-28 07:40] VITALS: BP 122/72
[2019-05-28 12:00] VITALS: BP 118/79
--- NOTE | 2019-05-28 13:14 | 2DMMODE ---
[place] [address] 2 D/M-MODE ECHOCARDIOGRAM Name: SHYLASANDOR MUSTAFA Room: [address] IN [facility]#: [id number] Admission: 05/27/19 Attend Phys: John Keen Discharge: Date of : 36 Date of Service: 05/28/19 1314 Report #: [id number] THIS REPORT FOR: //name// APPROVED REPORT Study performed: 05/28/2019 10:59:49 EXAM: Comprehensive 2D, Doppler, and color-flow Echocardiogram Patient Location: In-Patient Room #: 202 Status: routine BSA: 2.37 HR: 70 bpm BP: 122/72 mmHg Rhythm: NSR Other Information Study Quality: Good Indications Chest Pain 2D Dimensions IVSd: 13.21 (7-11mm) LVOT Diam: 18.87 (18-24mm) LVDd: 45.99 mm PWd: 12.34 (7-11mm) LVDs: 32.07 (25-40mm) Aortic Root: 34.54 mm Volumes Left Atrial Volume (Systole) LA ESV Index: 32.30 mL/m2 Aortic Valve AoV Peak Lan.: 0.95 m/s AO Peak Gr.: 3.57 mmHg LVOT Max P.41 mmHg AO Mean Gr.: 2.31 mmHg LVOT Mean P.34 mmHg LVOT Max V: 0.78 m/s AO V2 VTI: 17.01 cm LVOT Mean V: 0.54 m/s XIAO (VTI): 2.18 cm2 LVOT V1 VTI: 13.29 cm Pulmonary Valve PV Peak Lan.: 0.79 m/s PV Peak Gr.: 2.51 [place] [address] 2 D/M-MODE ECHOCARDIOGRAM Name: SHYLASANDOR Renard Room: [address] IN [facility].#: [id number] Admission: 05/27/19 Attend Phys: John Keen Discharge: Date of : 36 Date of Service: 05/28/19 1314 Report #: [id number] RAP Estimate: 5.00 mmHg TR Peak Gr.: 20.56 mmHg RVSP: 25.00 mmHg PA Pressure: 25.00 mmHg Left Ventricle The left ventricle is normal size. Left ventricular systolic dysynergy noted consistent with conduction delay. Mild concentric left ventricular hypertrophy. Left ventricular systolic function is normal. LVEF is 55-60%. Transmitral Doppler flow pattern suggests impaired LV relaxation. Right Ventricle The right ventricle is normal size. The right ventricular systolic function is normal. Atria Left atrium is moderately dilated. Right atrium is moderately dilated. Aortic Valve Mild aortic valve sclerosis. No aortic regurgitation is present. There is no aortic valvular stenosis. Mitral Valve There is mitral annular calcification. Trace mitral regurgitation. No evidence of mitral valve stenosis. Tricuspid Valve The tricuspid valve is normal in structure. Trace tricuspid regurgitation. No pulmonary hypertension. Pulmonic Valve The pulmonary valve is normal in structure. There is no pulmonic valvular regurgitation. Great Vessels The aortic root is normal in size. IVC is normal in size and collapses >50% with inspiration. Pericardium There is no pericardial effusion. <Conclusion> The left ventricle is normal size. Mild concentric left ventricular hypertrophy. Left ventricular [place] [address] 2 D/M-MODE ECHOCARDIOGRAM Name: SANDOR MANSFIELD Room: [address] IN [facility]#: [id number] Admission: 05/27/19 Attend Phys: John Keen Discharge: Date of : 36 Date of Service: 05/28/19 1314 Report #: [id number] LVEF is 55-60%. Left atrium is moderately dilated. Right atrium is moderately dilated. Mild aortic valve sclerosis. Trace mitral regurgitation. Trace tricuspid regurgitation. No pulmonary hypertension. Trace tricuspid regurgitation. No pulmonary hypertension. Left ventricular systolic dysynergy noted consistent with conduction delay. <ELECTRONICALLY SIGNED> By: Son Alejandre MD, FACC 05/28/19 1314 13 13 Son Alejandre MD, FACC /INF
--- NOTE | 2019-05-28 13:21 | EKG ---
[place] [address] ELECTROCARDIOGRAM REPORT Name: SANDOR MANSFIELD Room: [address] ADM IN .R.#: [id number] Admission: 05/27/19 Attend Phys: Laurel Neville Discharge: Date of : 36 Report #: [id number] THIS REPORT FOR: //name// [facility] ED Test Date: 2019-05-27 Test Time: 15:16:45 Pat Name: SANDOR MANSFIELD Department: Room: [facility] Gender: M Cone Treater: : 1940 Requested By: Keith Castanon Order Number: [id number] MD: Son Alejandre Measurements Intervals [place] Rate: 76 P: 85 KS: 75 QRS: 43 QRSD: 99 T: 30 QT: 398 QTc: 448 Interpretive Statements Atrial fibrillation with occasional ventricular pacing Borderline low voltage, extremity leads Borderline repolarization abnormality Compared to ECG 11/07/2018 09:57:53 Electronically Signed On 05-28-2019 13:21:10 CDT by Son Alejandre [email or web address] <ELECTRONICALLY SIGNED> By: Son Alejandre MD, FACC 05/28/19 1321 1516 1516 Son Alejandre MD, [facility] /EPI
[2019-05-28 20:00] VITALS: BP 124/62
[2019-05-28 23:45] LABS: URINE BILIRUBIN NEGATIVE (Negative); URINE BLOOD 3+ (Negative); URINE CLARITY SL CLOUDY; URINE COLOR YELLOW; URINE GLUCOSE-RANDOM NEGATIVE (Negative); URINE KETONES NEGATIVE (Negative); URINE PROTEIN 1+ (Negative); URINE SPECIFIC GRAVITY 1.025 (1.005-1.030); URINE UROBILINOGEN 0.2 E.U./dl (0.2-1.0)
[2019-05-28 23:46] LABS: URINE LEUKOCYTES-REFLEX 3+ (Negative); URINE NITRITE-REFLEX POSITIVE (Negative)
[2019-05-28 23:52] LABS: HYALINE CASTS 4-10 Moderate /LPF (None Seen); SQUAMOUS NONE SEEN /LPF (0-3); URINE WBC-REFLEX >25 Many /HPF (0-5)
[2019-05-28 23:53] LABS: CRYSTALS None Seen /LPF (None Seen); MUCUS 0-3 Light strn/LPF (None Seen); URINE RBC 3-10 Few /HPF (0-2); WBC CLUMPS Few (None Seen)
[2019-05-29 00:23] VITALS: BP 109/60
[2019-05-29 04:18] VITALS: BP 91/51
[2019-05-29 04:28] LABS: HEMOGLOBIN 11.3 gm/dL (14.0-18.0); MCH 27.1 pg (26.0-34.0); MCHC 31.5 g/dL (28.0-37.0); MPV 8.1 fl. (7.2-11.1); RBC 4.19 mil/uL (4.50-6.00); RDW-CV 16.9 % (10.5-14.5); WBC 27.7 thou/uL (4.0-11.0)
[2019-05-29 04:35] LABS: CALCIUM 9.5 mg/dL (8.5-10.1); POTASSIUM 4.2 mmol/L (3.5-5.1)
[2019-05-29 08:00] VITALS: BP 151/82
[2019-05-29 12:23] VITALS: BP 100/58
[2019-05-29 16:00] VITALS: BP 92/50
[2019-05-29 19:30] VITALS: BP 112/54
[2019-05-30] VITALS (7 sets, daily range): BP systolic 102–128; BP diastolic 48–86
[2019-05-30 04:19] LABS: HEMATOCRIT 31.9 % (42.0-52.0); HEMOGLOBIN 10.3 gm/dL (14.0-18.0); MCH 27.6 pg (26.0-34.0); MCHC 32.2 g/dL (28.0-37.0); MCV 85.8 fL (80.0-100.0); MPV 8.3 fl. (7.2-11.1); RBC 3.72 mil/uL (4.50-6.00); RDW-CV 16.8 % (10.5-14.5); WBC 16.1 thou/uL (4.0-11.0)
[2019-05-30 04:24] LABS: CALCIUM 9.4 mg/dL (8.5-10.1); POTASSIUM 3.8 mmol/L (3.5-5.1)
[2019-05-30 22:17] LABS: URINE BILIRUBIN NEGATIVE (Negative); URINE BLOOD NEGATIVE (Negative); URINE CLARITY CLEAR; URINE COLOR YELLOW; URINE GLUCOSE-RANDOM NEGATIVE (Negative); URINE KETONES NEGATIVE (Negative); URINE LEUKOCYTES-REFLEX 1+ (Negative); URINE NITRITE-REFLEX NEGATIVE (Negative); URINE PROTEIN 1+ (Negative); URINE SPECIFIC GRAVITY 1.025 (1.005-1.030); URINE UROBILINOGEN 0.2 E.U./dl (0.2-1.0)
[2019-05-30 23:05] LABS: SQUAMOUS 0-3 Few /LPF (0-3)
[2019-05-30 23:06] LABS: HYALINE CASTS 4-10 Moderate /LPF (None Seen)
[2019-05-30 23:09] LABS: URIC ACID CRYSTALS 0-3 Few /LPF (None Seen); URINE RBC None Seen /HPF (0-2)
[2019-05-31 00:39] LABS: BE 2.7 mmol/L (-2 to +3); PO2 76.2 mmHg (75.0-100.0)
[2019-05-31 00:51] LABS: PCO2 70.7 mmHg (35.0-45.0); pH 7.267 (7.340-7.450)
[2019-05-31 03:45] LABS: BE 6.9 mmol/L (-2 to +3); pH 7.351 (7.340-7.450)
[2019-05-31 03:50] LABS: PCO2 63.2 mmHg (35.0-45.0); PO2 133.3 mmHg (75.0-100.0)
[2019-05-31 04:00] VITALS: BP 106/64
[2019-05-31 04:23] LABS: HEMATOCRIT 32.9 % (42.0-52.0); HEMOGLOBIN 10.6 gm/dL (14.0-18.0); MCH 27.9 pg (26.0-34.0); MCHC 32.3 g/dL (28.0-37.0); MCV 86.2 fL (80.0-100.0); RBC 3.81 mil/uL (4.50-6.00); RDW-CV 16.3 % (10.5-14.5); WBC 11.9 thou/uL (4.0-11.0)
[2019-05-31 04:35] LABS: CALCIUM 9.4 mg/dL (8.5-10.1); POTASSIUM 3.6 mmol/L (3.5-5.1)
[2019-05-31 08:20] VITALS: BP 113/67
[2019-05-31 12:42] VITALS: BP 115/70
[2019-05-31 17:08] VITALS: BP 111/67
[2019-05-31 20:30] VITALS: BP 109/72
[2019-06-01] VITALS (7 sets, daily range): BP systolic 112–132; BP diastolic 64–83
[2019-06-01 04:35] LABS: HEMATOCRIT 32.8 % (42.0-52.0); HEMOGLOBIN 10.6 gm/dL (14.0-18.0); MCH 27.6 pg (26.0-34.0); MCHC 32.2 g/dL (28.0-37.0); MCV 85.6 fL (80.0-100.0); RBC 3.83 mil/uL (4.50-6.00); RDW-CV 16.1 % (10.5-14.5); WBC 10.1 thou/uL (4.0-11.0)
[2019-06-01 04:49] LABS: CALCIUM 9.6 mg/dL (8.5-10.1)
--- NOTE | 2019-06-01 07:40 | CON ---
[address] [address] CONSULTATION Name: SANDOR MANSFIELD Room: [address] IN .R.#: [id number] Admission: 05/27/19 Attend Phys: Laurel Neville Discharge: Date of : 36 Report #: [id number] THIS REPORT FOR: //name// CC: FAM unknown John Keen DATE OF SERVICE: 05/29/2019 ATTENDING PHYSICIAN: Dr. Guzman REASON FOR EVALUATION: Complicated urinary tract infection. HISTORY OF PRESENT ILLNESS: Chart reviewed and the patient examined. This is an 78-year-old man known to myself, seen intermittently, permanent in hospital. He has got cognitive deficits. He also has limited mobility. He does require a wheelchair. He has got a chronic indwelling suprapubic catheter as well as a colostomy, who presented with chest pain. This was seemed to be remedied by gastrointestinal cocktail. Cardiac ischemic event was occluded; however, he had developed some low-grade temperature elevations. Urinalysis did show marked pyuria. He does have a known history of recurrent complicated urinary tract infections, although I am aware of last one in 10/2018. The records for cultures are pending. On reviews of previous cultures, he had Escherichia coli that was multiple drug resistant. At this point, he is not overtly toxic. He is generally lucid at his baseline. Denies any significant pulmonary or gastrointestinal related complaints. ALLERGIES: PENICILLINS, CODEINE, ASPIRIN, QUININE, AND LATEX. MEDICATIONS: Include rivaroxaban, multivitamin, loratadine, fentanyl, duloxetine, amiodarone, metoprolol, citalopram, gabapentin, carvedilol, finasteride, oxybutynin, pantoprazole, furosemide, guaifenesin, benzonatate, ondansetron, and nitroglycerin. PAST MEDICAL HISTORY: COPD, atrial fibrillation, history of kidney cancer, cognitive deficits, suprapubic catheter long-standing indwelling, and recurrent urinary tract infections. 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 SOCIAL HISTORY: Former smoker. Past ethanol. No illicit drug use. FAMILY HISTORY: Noncontributory. REVIEW OF SYSTEMS: Otherwise, unremarkable 10-point review of systems. Denies any fevers or chills. He states he is actually ready to go home. PHYSICAL EXAMINATION: [place] [address] CONSULTATION Name: SANDOR MANSFIELD Room: [address]#: [id number] Admission: 05/27/19 Attend Phys: Laurel Neville Discharge: Date of : 36 Report #: [id number] GENERAL: He appears chronically ill. He is pleasant and cooperative. He is at his baseline in terms of mentation, I believe. VITAL SIGNS: Temperature max 100.1, more recently 98.2; pulse 84; respirations 19; and blood pressure 91/51. SKIN: Warm and dry. No rashes. HEENT: Normocephalic. Extraocular muscles intact. NECK: Supple. LUNGS: Diminished breath sounds, otherwise few scattered crackles. HEART: Irregular. I do not appreciate a murmur. ABDOMEN: Distended and mildly firm. There are no apparent peritoneal signs. Suprapubic catheter in place. He has got the colostomy as well. GENITOURINARY AND RECTAL: Deferred. LABORATORY DATA: Initial CBC: White count of 13.1, repeat this morning was 27.7; H and H 11.3 and 36.0; and platelets of 226. Urinalysis; 3+ leukocytes, few clumps, greater than 25 white cells, and 10-30 bacteria. Echo; left ventricular hypertrophy, EF of 55-60%, mild aortic valve sclerosis, and trace mitral regurgitation. Serial troponins were in normal range. Chest x-ray unchanged from study in September. Electrolytes: Sodium 139, potassium 4.6, chloride 102, bicarbonate is 28, anion gap of 9, BUN and creatinine 19 and 1.1, glucose of 140, albumin 3.1, total protein of 8.0, and estimated GFR of 64. ASSESSMENT AND PLAN: Complicated urinary tract infection. Urine culture is in progress. He actually seems to be at his baseline. He does have markedly elevated white count, although historically he tends to have pretty vigorous response. We will dose with combination therapy at this point. He may be a candidate for early discharge. We will discuss with the wound care nurse. He has longstanding wounds. I presume that he at home at this point is ambulating with a wheelchair, not clear who is taking care of him. <ELECTRONICALLY SIGNED> By: Marvin Amaro MD 06/01/19 0740 1121 [id number] Amaro MD /nt
[2019-06-02] VITALS: BP 102/58
[2019-06-02 04:00] VITALS: BP 105/61
[2019-06-02 05:09] LABS: CALCIUM 9.4 mg/dL (8.5-10.1); CREATININE 0.9 mg/dL (0.6-1.3); HEMATOCRIT 34.1 % (42.0-52.0); HEMOGLOBIN 11.1 gm/dL (14.0-18.0); MCH 27.7 pg (26.0-34.0); MCHC 32.5 g/dL (28.0-37.0); MCV 85.2 fL (80.0-100.0); RDW-CV 16.6 % (10.5-14.5); WBC 10.7 thou/uL (4.0-11.0)
[2019-06-02 08:00] VITALS: BP 127/54
[2019-06-02 11:58] VITALS: BP 112/69
--- NOTE | 2019-06-02 13:33 | EKG ---
[place] [address] ELECTROCARDIOGRAM REPORT Name: SANDOR MANSFIELD Room: [address] ADM IN M.R.#: [id number] Admission: 05/27/19 Attend Phys: Laurel Neville Discharge: Date of : 36 Report #: [id number] THIS REPORT FOR: //name// [facility] Test Date: 2019-06-01 Test Time: 19:13:49 Pat Name: SANDOR MANSFIELD Department: Room: [address] Gender: M Painter Aircraft: [place]CHITA : 1940 Requested By: Ashish Guzman Order Number: [id number] Kiersten MD: Son Alejandre Measurements Intervals [place] Rate: 69 P: SC: QRS: -78 QRSD: 188 T: 91 QT: 526 QTc: 564 Interpretive Statements Atrial fibrillation with ventricular pacing Compared to ECG 05/27/2019 15:16:45 No significant changes noted. Electronically Signed On 06-02-2019 13:33:29 CDT by Son Alejandre [email or web address] <ELECTRONICALLY SIGNED> By: Son Alejandre MD, FACC 06/02/19 1333 12 12 Son Alejandre MD, FAC /EPI
[2019-06-02 15:53] VITALS: BP 111/60
[2019-06-02 18:50] LABS: URINE BILIRUBIN NEGATIVE (Negative); URINE BLOOD TRACE (Negative); URINE CLARITY CLEAR; URINE COLOR YELLOW; URINE GLUCOSE-RANDOM NEGATIVE (Negative); URINE KETONES NEGATIVE (Negative); URINE LEUKOCYTES-REFLEX 1+ (Negative); URINE NITRITE-REFLEX NEGATIVE (Negative); URINE PROTEIN NEGATIVE (Negative); URINE SPECIFIC GRAVITY 1.015 (1.005-1.030); URINE UROBILINOGEN 0.2 E.U./dl (0.2-1.0)
[2019-06-02 19:03] LABS: HYALINE CASTS >10 Many /LPF (None Seen)
[2019-06-02 19:04] LABS: WBC CLUMPS Few (None Seen)
[2019-06-02 19:05] LABS: BACTERIA-REFLEX 1-9 Few /HPF (None Seen); CRYSTALS None Seen /LPF (None Seen); MUCUS None Seen strn/LPF (None Seen); SQUAMOUS NONE SEEN /LPF (0-3); URINE RBC 0-2 Rare /HPF (0-2); URINE WBC-REFLEX 6-15 Few /HPF (0-5)
[2019-06-02 20:00] VITALS: BP 127/83
[2019-06-03 04:00] VITALS: BP 115/62
[2019-06-03 07:50] VITALS: BP 124/63
[2019-06-03 12:00] VITALS: BP 103/57
[2019-06-03 20:51] VITALS: BP 134/65
[2019-06-04 09:41] VITALS: BP 121/70
[2019-06-04] MEDS ORDERED: FENTANYL PATCH75 MCG TRANSDERM (09:42)
[2019-06-04] MEDS ORDERED: NORCO 7.5-3251 EACH PO (09:42)
[2019-06-04 12:46] VITALS: BP 121/70
[2019-06-04] MEDS ORDERED: MACROBID 100 M100 MG PO (13:20)
== END 2019-06-04 15:33 | DRG 292 ==
LOC: M.ERS 15:12 → M.2W 17:11 → M.TBA-ER 17:11 → M.2W 19:36 → M.3W 06-03 16:40
PROVIDERS: Emergency Medicine; Family Medicine; Internal Medicine Infectious Disease; Specialist; ADMIT Internal Medicine
PROC: 5A09357 Assistance with Respiratory Ventilation, Less than 24 Consecutive Hours, Continuous Positive Airway Pressure (ICD-10-PCS; principal; 2019-05-31)
PROC: 5A09357 Assistance with Respiratory Ventilation, Less than 24 Consecutive Hours, Continuous Positive Airway Pressure (ICD-10-PCS; 2019-06-01)
PROC: 5A09357 Assistance with Respiratory Ventilation, Less than 24 Consecutive Hours, Continuous Positive Airway Pressure (ICD-10-PCS; 2019-06-02)
DX: I50.33 Acute on chronic diastolic (congestive) heart failure (principal); N39.0 Urinary tract infection, site not specified; G82.20 Paraplegia, unspecified; D68.59 Other primary thrombophilia; I48.20 Chronic atrial fibrillation, unspecified; F11.20 Opioid dependence, uncomplicated; T81.30XA Disruption of wound, unspecified, initial encounter; R65.10 Systemic inflammatory response syndrome (SIRS) of non-infectious origin without acute organ dysfunction; J96.10 Chronic respiratory failure, unspecified whether with hypoxia or hypercapnia; K21.9 Gastro-esophageal reflux disease without esophagitis; K59.00 Constipation, unspecified; K31.84 Gastroparesis; G62.9 Polyneuropathy, unspecified; F32.9 Major depressive disorder, single episode, unspecified; J44.9 Chronic obstructive pulmonary disease, unspecified; G89.4 Chronic pain syndrome; B96.20 Unspecified Escherichia coli [E. coli] as the cause of diseases classified elsewhere; B95.61 Methicillin susceptible Staphylococcus aureus infection as the cause of diseases classified elsewhere; Z85.528 Personal history of other malignant neoplasm of kidney; Z93.3 Colostomy status; Z88.0 Allergy status to penicillin; Z88.8 Allergy status to other drugs, medicaments and biological substances; Z88.6 Allergy status to analgesic agent; Z91.040 Latex allergy status; Z87.891 Personal history of nicotine dependence; Z95.0 Presence of cardiac pacemaker; Z23 Encounter for immunization; Z79.899 Other long term (current) drug therapy